=== PATIENT | female | born 2000 | race Caucasian/White ===

== ENCOUNTER → 2020-01-10 | Outpatient (REF) | payer OTHER ==
[~2020-01-10] MED LIST: CVS5000S2 PO; IRON325T2 PO; MELA10TA2 PO; NAPR-837 PO; TESS100C PO; TRI-TAB PO; ZOLO100T PO
== END ==
LOC: M SFHCLERA 19:24
PROVIDERS: ATTEND Physician Assistant
DX: J02.9 Acute pharyngitis, unspecified (principal)

== ENCOUNTER 2020-01-11 17:49 | Emergency (ER) | payer OTHER ==
[~2020-01-11] VITALS: Ht 157.5 cm; Wt 58.1 kg
--- NOTE | 2020-01-11 19:13 | REP ---
Clinical: Cough . Comparison: None . Technique: PA and lateral. Findings: The mediastinum and cardiac silhouette are normal. The lung edmondson are clear and without acute consolidation, effusion, or pneumothorax. The skeletal structures are intact and normal. Impression: 1. No acute cardiopulmonary process. Electronically Signed by Varinder Lake MD 01/11/2020 07:05 P
[2020-01-11] MEDS ORDERED: CVS5000S2 PO (19:31)
[2020-01-11] MEDS ORDERED: ZOLO100T PO (19:31)
[2020-01-11] MEDS ORDERED: IRON325T2 PO (19:31)
[2020-01-11] MEDS ORDERED: TRI-TAB PO (19:31)
[2020-01-11] MEDS ORDERED: MELA10TA2 PO (19:31)
[2020-01-11 20:09] VITALS: BP 114/73
[2020-01-11] MEDS ORDERED: NAPR-837 PO (20:20)
[2020-01-11] MEDS ORDERED: TESS100C PO (20:20)
[2020-01-11] MEDS ORDERED: BENZONATATE 100 MG CAP PO ONE (20:30)
[2020-01-11] MEDS ORDERED: NAPROXEN 250 MG TAB PO ONE (20:30)
== END 2020-01-11 20:35 | disposition home or self-care (01) ==
LOC: M ED 17:49
DX: R09.1 Pleurisy (principal); B34.9 Viral infection, unspecified; F17.290 Nicotine dependence, other tobacco product, uncomplicated; F41.9 Anxiety disorder, unspecified; F32.9 Major depressive disorder, single episode, unspecified; Z79.899 Other long term (current) drug therapy

== ENCOUNTER 2020-08-22 13:59 | Emergency (ER) | payer OTHER ==
[~2020-08-22] VITALS: Ht 160 cm; Wt 65.3 kg
[2020-08-22] MEDS ORDERED: LIDOCAINE 2% MDV 20ML VIAL SC ONE (15:45)
[2020-08-22 16:26] VITALS: BP 120/76
== END 2020-08-22 16:27 | disposition home or self-care (01) ==
LOC: M ED 13:59
DX: S60.454A Superficial foreign body of right ring finger, initial encounter (principal); Y92.9 Unspecified place or not applicable; Y93.9 Activity, unspecified; Y99.9 Unspecified external cause status

== ENCOUNTER 2020-10-14 13:41 | Emergency (ER) | payer OTHER ==
[~2020-10-14] VITALS: Ht 160 cm; Wt 66.1 kg
[2020-10-14] MEDS ORDERED: vitamin d PO (13:56)
[2020-10-14] MEDS ORDERED: NAPR-832 PO (13:56)
[2020-10-14] MEDS ORDERED: ONDA-83 PO (13:56)
[2020-10-14] MEDS ORDERED: RIZA10TA58 PO (13:56)
[2020-10-14] MEDS ORDERED: NS 1,000 ML IV SCH (14:34)
[2020-10-14] MEDS ORDERED: ASPIRIN 81 MG CHEW TABLET PO ONE (14:45)
[2020-10-14 15:16] LABS: BASO % 0.4 % (0.0-1.0); EOS # 0.3 10^3/uL (0.0-0.5); EOS % 3.7 % (0.0-3.0); HEMATOCRIT 37.9 % (36.0-47.0); HEMOGLOBIN 12.4 g/dl (12.0-15.5); LYMPH # 2.2 10^3/uL (1.5-5.0); LYMPH % 33.2 % (24.0-44.0); MEAN CORPUSCULAR HEMOGLOBIN 28.8 pg (27.0-33.0); MEAN CORPUSCULAR HGB CONC 32.7 g/dl (32.0-36.5); MEAN CORPUSCULAR VOLUME 87.9 fl (80.0-96.0); MONO # 0.5 10^3/uL (0.0-0.8); MONO % 7.6 % (0.0-5.0); NEUTROPHILS # 3.7 10^3/uL (1.5-8.5); NEUTROPHILS % 54.8 % (36.0-66.0); PLATELET COUNT, AUTOMATED 203 10^3/uL (150-450); RED BLOOD COUNT 4.31 10^6/uL (4.00-5.40); WHITE BLOOD COUNT 6.7 10^3/uL (4.0-10.0)
[2020-10-14 15:28] LABS: INR 0.88; PROTHROMBIN TIME 12.1 SECONDS (12.5-14.3)
[2020-10-14 15:48] LABS: HCG, SERUM QUALITATIVE NEGATIVE (NEGATIVE)
[2020-10-14 15:59] LABS: ALBUMIN 3.7 GM/DL (3.2-5.2); ALT/SGPT 35 U/L (12-78); BILIRUBIN,DIRECT 0.1 MG/DL (0.0-0.2); BILIRUBIN,TOTAL 0.4 MG/DL (0.2-1.0); BLOOD UREA NITROGEN 10 MG/DL (7-18); CARBON DIOXIDE LEVEL 28 MEQ/L (21-32); CHLORIDE LEVEL 104 MEQ/L (98-107); CK-MB VALUE MASS < 1.0 NG/ML (<3.6); CPK CREATINE PHOSPHOKINASE 88 U/L (26-192); CREATININE FOR GFR 0.65 MG/DL (0.55-1.30); FREE T4 0.85 NG/DL (0.78-1.33); GLUCOSE, FASTING 85 MG/DL (70-100); MB/CK RELATIVE INDEX 1.14 (< OR =4); NT-PRO BNP 44 PG/ML (<125); POTASSIUM SERUM 3.7 MEQ/L (3.5-5.1); SODIUM LEVEL 138 MEQ/L (136-145); THYROID STIMULATING HORMONE 0.955 uIU/ML (0.463-3.98); TOTAL PROTEIN 7.3 GM/DL (6.4-8.2); TROPONIN I < 0.02 NG/ML (< 0.10)
--- NOTE | 2020-10-14 16:18 | REP ---
INDICATION: CHEST PAIN. COMPARISON: 01/11/2020 TECHNIQUE: AP portable upright FINDINGS: Lung edmondson are well inflated. There is no infiltrate, effusion atelectasis or mass. The heart, mediastinal hilar contours are normal. There is no evidence of pneumothorax or pneumomediastinum. The aorta and airway were intact. Bones were unremarkable. No free air under the diaphragm. IMPRESSION: 1. There is no acute cardiopulmonary change. Stable chest. <Electronically signed by Gurdeep Sparks > 10/14/20 [id number]
[2020-10-14 16:49] VITALS: BP 123/68
--- NOTE | 2020-10-14 19:28 | ECGEPIP ---
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
== END 2020-10-14 16:53 | disposition home or self-care (01) ==
LOC: M ED 13:41
DX: R00.2 Palpitations (principal); F41.9 Anxiety disorder, unspecified; Z79.899 Other long term (current) drug therapy

== ENCOUNTER 2020-12-27 23:12 | Emergency (ER) | payer OTHER ==
[~2020-12-27] VITALS: Ht 160 cm; Wt 66.5 kg
[~2020-12-27 23:12] MED LIST changes: +NAPR-832 PO; +ONDA-83 PO; +RIZA10TA58 PO; +vitamin d PO
--- OUTSIDE RECORDS SUMMARY | 2020-12-27 23:19 | CCD | Continuity of Care Document ---
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 Manager General Sales Name Role Phone Ed Martinez MD AUTM Unavailable [facility] AUTM [employer]M [phone] Problems Description No Information Available Social History Type Date Description Comments Sex Unknown Tobacco Use Start: Unknown Patient has never smoked Tobacco Use Start: Unknown Patient Currently Vapes Smoking Status Reviewed: 12/16/20 Patient Currently Vapes Allergies, Adverse Reactions, Alerts Description No Known Drug Allergies Medications Active Medications SIG Qnty Indications Ordering Provide r Date Control Pill Unknown Vitamin D Unknown Sertraline HCL Unknown Maxalt 10mg Tablets qd Unknown Ibuprofen 600mg Tablets 1 tab by mouth every 8 hours as needed Unknown History Medications No Active Medications Unknown - 09/20/2020 Immunizations Description No Information Available Vital Signs Date Vital Result Comment 12/16/2020 12:31pm BP Systolic 118 mmHg BP Diastolic 72 mmHg Heart Rate 88 /min Respiratory Rate 14 /min O2 % BldC Oximetry 98 % Body Temperature 98.7 F Weight 143.00 lb Pain Level 4 09/28/2020 12:34pm BP Systolic 106 mmHg BP Diastolic 64 mmHg Heart Rate 86 /min Respiratory Rate 16 /min O2 % BldC Oximetry 98 % Body Temperature 98.6 F Weight 130.00 lb Height 63 inches 5'3" BMI (Body Mass Index) 23.0 kg/m2 Pain Level 9 Results Description No Information Available Procedures Date Code Description Status 09/28/2020 04253 Therapeutic, Prophylactic Or Mamie gnostic Injection Subq/Im Completed Medical Devices Description No Information Available Encounters Type Date Location Provider Dx Diagnosis Office Visit 12/16/2020 1:00p Main Office SANTI Zafar J06.9 Acute upper respiratory infection, unspecified Z20.828 Contact w and exposure to ot h viral communicable diseases Office Visit 09/28/2020 1:15p Main Office SANTI Zafar R51.9 Headache, unspecified M26.603 Bilateral temporomandibular joint disorder, unspecified F41.9 Anxiety disorder, unspecifie d Office Visit 09/20/2020 5:00p Main Office SANTI Musa J0 1.00 Acute maxillary sinusitis, unspecified Z20.828 Contact w and exposure to ot h viral communicable diseases Assessments Date Code Description Provider 12/16/2020 J06.9 Acute upper respiratory infectio n, unspecified SANTI Zafar 12/16/2020 Z20.828 Contact with and ([place] spected) exposure to other viral communicable diseases SANTI Zafar 09/28/2020 R51.9 Headache, unspecified SANTI Zafar 09/28/2020 M26.603 Bilateral temporomandibular join t disorder, unspecified SANTI Zafar 09/28/2020 F41.9 Anxiety disorder, unspecified SANTI Vivas 09/20/2020 J01.00 Acute maxillary sinusitis, unspe cified SANTI Musa 09/20/2020 Z20.828 Contact with and ([place] spected) exposure to other viral communicable diseases SANTI Musa Plan of Treatment No Information Available Functional Status Description No Information Available Mental Status Description No Information Available Referrals Refer to Dr Reason for Referral Status Appt Date [facility] Created [address] [place] [address] Niesha Barton PA Created [address] [place] [address] [phone] Niesha Barton PA Created [address] [place] [address] [phone]
--- OUTSIDE RECORDS SUMMARY | 2020-12-27 23:19 | CCD | Continuity of Care Document ---
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
--- OUTSIDE RECORDS SUMMARY | 2020-12-27 23:19 | CCD ---
Author Author [facility] Organization [facility] Address Unknown Phone Unavailable Care Team Providers Care Oil Dispatcher Name Role Phone Blayne Estes MD Unavailable Unavailable Blayne Estes MD Unavailable Unavailable Blayne Estes MD Unavailable Unavailable Blayne Estes MD Unavailable Unavailable Blayne Estes MD Unavailable Unavailable Blayne Estes MD Unavailable Unavailable Blayne Estes MD Unavailable Unavailable Blayne Estes MD Unavailable Unavailable Blayne Estes MD Unavailable Unavailable Blayne Estes MD Unavailable Unavailable Blayne Estes MD Unavailable Unavailable Blayne Estes MD Unavailable Unavailable Blayne Estes MD Unavailable Unavailable Blayne Estes MD Unavailable Unavailable Blayne Estes MD Unavailable Unavailable Blayne Estes MD Unavailable Unavailable Blayne Estes MD Unavailable Unavailable Blayne Estes MD Unavailable Unavailable Blayne Estes MD Unavailable Unavailable Blayne Estes MD Unavailable Unavailable Blayne Estes MD Unavailable Unavailable Blayne Estes MD Unavailable Unavailable Blayne Estes MD Unavailable Unavailable Blayne Estes MD Unavailable Unavailable Blayne Estes MD Unavailable Unavailable Blayne Estes MD Unavailable Unavailable Blayne Estes MD Unavailable Unavailable Blayne Estes MD Unavailable Unavailable Blayne Estes MD Unavailable Unavailable Slezka Vojtech MD Unavailable Unavailable Slezka Vojtech MD Unavailable Unavailable Slezka Vojtech MD Unavailable Unavailable Slezka Vojtech MD Unavailable Unavailable Slezka Vojtech MD Unavailable Unavailable Slezka Vojtech MD Unavailable Unavailable Slezka Vojtech MD Unavailable Unavailable Slezka Vojtech MD Unavailable Unavailable Slezka Vojtech MD Unavailable Unavailable Slezka Vojtech MD Unavailable Unavailable Slezka Vojtech MD Unavailable Unavailable Slezka Vojtech MD Unavailable Unavailable Slezka, Vojtech MD Unavailable Unavailable Slezka Vojtech MD Unavailable Unavailable Slezka Vojtech MD Unavailable Unavailable Slezka Vojtech MD Unavailable Unavailable Slezka Vojtech MD Unavailable Unavailable Slezka Vojtech MD Unavailable Unavailable Slezka Vojtech MD Unavailable Unavailable Slezka Vojtech MD Unavailable Unavailable Slezka Vojtech MD Unavailable Unavailable Slezka Vojtech MD Unavailable Unavailable Slezka Vojtech MD Unavailable Unavailable Slezka Vojtech MD Unavailable Unavailable Slezka, Vojtech MD Unavailable Unavailable Slezka Vojtech MD Unavailable Unavailable Slezka Vojtech MD Unavailable Unavailable Slezka Vojtech MD Unavailable Unavailable Slezka Vojtech MD Unavailable Unavailable Campanaro, Mare Niesha PA Unavailable Unavailable Campanaro, Mare Niesha PA Unavailable Unavailable Campanaro, Mare Niesha PA Unavailable Unavailable Campanaro, Mare Niesha PA Unavailable Unavailable Campanaro, Mare Niesha PA Unavailable Unavailable Campanaro, Mare Niesha PA Unavailable Unavailable Campanaro, Mare Niesha PA Unavailable Unavailable Campanaro, Mare Niesha PA Unavailable Unavailable Campanaro, Mare Niesha PA Unavailable Unavailable Campanaro, Mare Niesha PA Unavailable Unavailable Campanaro, Mare Niesha PA Unavailable Unavailable Campanaro, Mare Niesha PA Unavailable Unavailable Campanaro, Mare Niesha PA Unavailable Unavailable Campanaro, Mare Niesha PA Unavailable Unavailable Campanaro, Mare Niesha PA Unavailable Unavailable Campanaro, Mare Niesha PA Unavailable Unavailable Campanaro, Mare Niesha PA Unavailable Unavailable Campanaro, Mare Niesha PA Unavailable Unavailable LENA, L ALEX MD Unavailable Unavailable LENA, L ALEX MD Unavailable Unavailable LENA, L ALEX MD Unavailable Unavailable LENA, L ALEX MD Unavailable Unavailable LENA, L ALEX MD Unavailable Unavailable LENA, L ALEX MD Unavailable Unavailable LENA, L ALEX MD Unavailable Unavailable LENA, L ALEX MD Unavailable Unavailable LENA, L ALEX MD Unavailable Unavailable LENA, L ALEX MD Unavailable Unavailable LENA, L ALEX MD Unavailable Unavailable LENA, L ALEX MD Unavailable Unavailable LENA, L ALEX MD Unavailable Unavailable LENA, L ALEX MD Unavailable Unavailable LENA, L ALEX MD Unavailable Unavailable LENA, L ALEX MD Unavailable Unavailable LENA, L ALEX MD Unavailable Unavailable LENA, L ALEX MD Unavailable Unavailable LENA, L ALEX MD Unavailable Unavailable LENA, L ALEX MD Unavailable Unavailable LENA, L ALEX MD Unavailable Unavailable LENA, L ALEX MD Unavailable Unavailable LENA, L ALEX MD Unavailable Unavailable Washington, Dary Justine PA Unavailable Unavailable Washington, Dary Justine PA Unavailable Unavailable Washington, Dary Justine PA Unavailable Unavailable Washington, Dary Justine PA Unavailable Unavailable Washington, Dary Justine PA Unavailable Unavailable Washington, Dary Justine PA Unavailable Unavailable Washington, Dary Justine PA Unavailable Unavailable Washington, Dary Justine PA Unavailable Unavailable Washington, Dary Justine PA Unavailable Unavailable Washington, Dary Justine PA Unavailable Unavailable VENEALINESKal MD Unavailable Unavailable VENERUSKal MD Unavailable Unavailable VENEALINESKal MD Unavailable Unavailable VENERUSKal MD Unavailable Unavailable VENERUSKal MD Unavailable Unavailable VENERUSKal MD Unavailable Unavailable VENERUSKal MD Unavailable Unavailable VENEALINESKal MD Unavailable Unavailable VENEALINESKal MD Unavailable Unavailable NO, PCP Unavailable Unavailable Re-disclosure Warning The records that you are about to access may contain information from federally-assisted alcohol or drug abuse programs. If such information is present, then the following federally mandated warning applies: This information has been disclosed to you from records protected by federal confidentiality rules (42 CFR part 2). The federal rules prohibit you from making any further disclosure of this information unless further disclosure is expressly permitted by the written consent of the person to whom it pertains or as otherwise permitted by 42 CFR part 2. A general authorization for the release of medical or other information is NOT sufficient for this purpose. The Federal rules restrict any use of the information to criminally investigate or prosecute any alcohol or drug abuse patient.The records that you are about to access may contain highly sensitive health information, the redisclosure of which is protected by Article 27-F of the [facility] Public Health law. If you continue you may have access to information: Regarding HIV / AIDS; Provided by facilities licensed or operated by the [facility] Office of Mental Health; or Provided by the [facility] Office for People With Developmental Disabilities. If such information is present, then the following [facility] mandated warning applies: This information has been disclosed to you from confidential records which are protected by state law. State law prohibits you from making any further disclosure of this information without the specific written consent of the person to whom it pertains, or as otherwise permitted by law. Any unauthorized further disclosure in violation of state law may result in a fine or correction sentence or both. A general authorization for the release of medical or other information is NOT sufficient authorization for further disc losure. Encounters Encounter Providers Location Date Indications Data Source(s ) Outpatient Attender: Justine Vasques Prim [facility] 12/16/2020 12:00:00 PM EST [facility] ([facility] Outpatient Attender: Blayne Estes MD SJP.LILLIANA-SJP.LILLIANA 10/03 12:00:00 AM EST - 10/26/2020 10:18:51 AM EST [facility] Outpatient Attender: Justine Vasques Prim diamond 09/28/2020 01:15:00 PM EDT [facility] ([facility]) Outpatient Attender: Niesha Vasques Prim [facility] 09/20/2020 05:00:00 PM EDT [facility] ([facility]) Emergency Attender: ELENA LEWIS MDConsultant: PCP NO 08/12/2020 01:46:00 PM EDT - 08/12/2020 05:00:00 PM EDT [facility] Patient discharged. Emergency Attender: ALEX PAREDES MDConsultant: PCP NO 08/10/2020 12:44:00 PM EDT - 08/10/2020 02:24:00 PM EDT [facility] Patient discharged. Outpatient 02/02/2020 05:42:00 AM EST [facility] [address] [place] [address] 01/10/2020 12:00:00 AM EST eCW1 ([facility]) Medications Medication Brand Name Start Date Product Form Dose Route Admi nistrative Instructions Pharmacy Instructions Status Indications Reaction Description Data Source(s) Sertraline 100 MG Oral Tablet sertraline (ZOLOFT) 100 MG tablet sertraline (ZOLOFT) 100 MG tablet 10/06/2020 12:00:00 AM EST active [facility] rizatriptan 10 MG Disintegrating Oral Ta blet rizatriptan (MAXALT-MACHINE SCALLOP CUTTER) 10 MG disintegrating tablet rizatriptan (MAXALT-MACHINE SCALLOP CUTTER) 10 MG disintegrating tablet 10/04/2020 12:00:00 AM EST active [facility] Ondansetron 4 MG Oral Tablet ondansetron (ZOFRAN) 4 MG tablet ondansetron (ZOFRAN) 4 MG tablet 10/04/2020 12:00:00 AM EST ac tive [facility] No Active Medications 09/20/2020 12:00:00 AM EDT completed [facility] ([facility]) Cholecalciferol 66967 UNT Oral Capsule C holecalciferol (VITAMIN D3) 1.25 MG (85260 UT) CAPS Cholecalciferol (VITAMIN D3) 1.25 MG (80681 UT) CAPS 1 12:00:00 AM EDT active [facility] 200 ACTUAT Albuterol 0.09 MG/ACTUAT Mete red Dose Inhaler [ProAir] ProAir HFA 108 (90 Base) MCG/ACT ProAir HFA 108 (90 Base) MCG/ACT 01/10/2020 12:00:00 AM EST active 2 puffs as neede d eCW1 ([facility]) Insurance Providers Payer name Policy type / Coverage type Policy ID Covered democrat ID Covered democrat's relationship to cassidy Policy Cassidy Plan Information [facility] [id number] [facility] [id number] [facility] O [id number] S [id number] Elle [id number] 501 [facility] [id number] [facility] - O/P [id number] Problems, Conditions, and Diagnoses Code Display Name Description Problem Type Effective Dates Data Source(s) R06.00 Dyspnea on exertion Dyspnea on exertion [id number] 1 12/26/2019 12:00:00 AM [facility] R00.2 Palpitations Palpitations [id number] 10/26/2020 12:00:00 A [facility] R07.89 Other chest pain Other chest pain [id number] 10/26/2020 12 :00:00 AM [facility] R06.00 Dyspnea, unspecified Dyspnea, unspecified Diagnosis 10/26/2020 09:27:32 AM [facility] R00.2 Palpitations Palpitations Diagnosis 10/26/2020 09:27:32 A [facility] R07.89 Other chest pain Other chest pain Diagnosis 10/26/2020 09 :27:32 AM [facility] [id number] Unspecified place in unspeci fied non-institutional (private) residence as the place of occurrence of the external cause Unspecified place in unspecified non-institutional (private) residence as the place of occurrence of the external cause Diagnosis 08/12[facility]2020 [id number] Other foreign body or object entering th rough skin, initial encounter Other foreign body or object entering through skin, initial encounter Diagnosis 08/12/2020 01:46:[facility] [id number] Puncture wound with foreign body of right ring finger without damage to nail, initial encounter Puncture wound with foreign body of righ t ring finger without damage to nail, initial encounter Diagnosis 08/12/2020 01:46:0 0 PM EDT [facility] Y9289 Other specified places as the place of o ccurrence of the external cause Other specified places as the place of occurrence of the external cause Diagnosis 08/10/2020 12:44:00 PM EDT [facility] [id number] Striking against or struck by other obje cts, initial encounter Striking against or struck by other objects, initial encounter Diagnosis 08/10/2020 12:44:00 PM EDT [facility] [id number] Cellulitis of right finger Cellulitis of right finger Diagnosis 08/10/2020 12:44:00 PM EDT [facility] [id number] Abrasion of right ring finger, initial e ncounter Abrasion of right ring finger, initial encounter Diagnosis 08/10/2020 12:44:00 PM EDT [facility] [id number] Unspecified superficial injury of right ring finger, initial encounter Unspecified superficial injury of right ring finger, initial encounter Diagnosis 08/10/2020 12:44:00 PM EDT [facility] Surgeries/Procedures Procedure Description Date Indications Data Source(s) POCT AMB EKG POCT AMB EKG Routine 10/26/2020 9:46 AM EST Other chest pain Palpitations 10/26/2020 02:46:00 PM EST PalpitationsOther roxy st pain [facility] Palpitations Other chest pain Therapeutic, Prophylactic Or Diagnostic Injection Subq/Im 09/28/2020 12:00:00 AM EDT [facility] ([facility]) STREP A ASSAY W/OPTIC 01/10/2020 12:00:00 AM EST eCW1 ([facility]) Influenza A+B 01/10/2020 12:00:00 AM EST eCW1 ([facility]) Results ID Date Data Source [id number] 12/16/2020 12:00:00 AM EST [facility] Name Value Range Interpretation Code Description Data Queta rce(s) Supporting Document(s) SARS coronavirus 2 Ag Negative [facility] This lab was ordered by [facility] and reported by [facility]. ID Date Data Source [id number] 09/20/2020 12:00:00 AM EDT [facility] Name Value Range Interpretation Code Description Data Queta rce(s) Supporting Document(s) SARS coronavirus 2 Ag [facility] This lab was ordered by [facility] and reported by [facility]. ID Date Data Source [id number] 08/15/2020 08:50:00 AM EDT [facility] [address] [place] [address] PHONE: [phone] FAX: [phone] Name .................. : MAMIE Ward Acct Number.................. : [id number] ROOM. ................. : [facility] MR Number ................... : [id number] Stay type ............. : E/R Discharge Date......... ... : 08/12/20 Admit Date ......... : 08/12/20 Admit Phys .................... : DEBBIE GODINEZ Date of ....... : 2000 Family Phys ................... : NO PCP Phone .................. : [phone] Age ................................ : 20 Film# .................. .:[id number] Sex ................................. : F Unsigned transcriptions are preliminary reports and do not represent a medical or legal document US EXT-NON VASCULAR RT COMPL [id number] COMPLETE:08/12/20 17:00 BAW [id number] Reason(s): ? FB in R ring finger ULTRASOUND OF THE SOFT TISSUES OF THE RIGHT RING FINGER: INDICATION: Foreign body. FINDINGS: There is a subtle area of linear increased echogenicity suggestive of a possible wood splinter measuring 6 x 1 mm at the area of interest. IMPRESSION: Suspected foreign body at the area of interest measuring 6 x 1 mm. Examination dictated by SANTI Marino. Examination was reviewed with Marly Pacheco MD, radiologist at the time of this dictation. Electronically Reviewed and Signed By MARLY PACHECO MD , 08/15/20 08:50, [facility] Transcribe Initials: DZ , Transcribe Date: 08/13/20 02:18, Dictation Date: Copy for: LIDIA ZAMBRANO via fax Copy for: EMERGENCY DEPT via modem Copy for: 710 MED REC DISCHARGED Page 1 of 1 Name Value Range Interpretation Code Description Data Queta rce(s) Supporting Document(s) ID Date Data Source [id number] 08/12/2020 01:46:00 PM EDT [facility] 1 OrderSheet [facility] Emergency Department [address] [place] [address] Phone #: ext- [phone] 08/12/2020 13:43 Patient: JOSEPH HATCH Sex: F : 2000 Age: 20yWEIGHT:58.9 kg (S) HEIGHT:63 inches (S) BMI:23.0ALLERGIES: No Known Drug AllergyCHIEF COMPLAINT: Rt, ring fingerDIAGNOSIS: Laceration - Injury, Soft tissue foreign bodyLAB ORDERSOrder Description Priority Entered Acknowledged InitialedDIAGNOSTIC STUDY ORDERSOrder Description Priority Entered Acknowledged InitialedUS Ext STAT 14:17 08/12/2020 14:22 Sorbero,Nonvascular Right Vignesh Patton R.N.(Oxygen?(No)) P.A.-C; Reason for Study: ? FB in R ring fingerMEDICATION/IV/DRIP/FLUID ORDERSOrder Description Priority Entered Acknowledged InitialedBacitracin Zinc 16:17 08/12/2020 16:42 Ravinder,Topical 1 Vignesh Patton R.N.application P.A.-C;GENERAL ORDERSOrder Description Priority Entered Acknowledged InitialedDress Wounds 16:17 08/12/2020 16:42 Vignesh Castellon R.N.AKleber-Maria Teresa;[Electronically signed by Abdi Castellon R.N. (17:18 08/12/2020)][Electronically signed by Vignesh Perales P.A.-C (21:56 08/12/2020)][Electronically locked by Abdi Castellon R.N. (:18 08/12/2020)] Name Value Range Interpretation Code Description Data Queta rce(s) Supporting Document(s) ID Date Data Source [id number] 08/12/2020 01:46:00 PM EDT [facility] 1 Medication Reconciliation Report [facility] Emergency Department [address] [place] [address] Phone #: ext- [phone] 08/12/2020 13:43 Patient: JOSEPH HATCH Sex: F : 2000 Age: 20yWeight: 58.9 kgHeight/Length: 63 in.BMI: 23.0ALLERGIES: No Known Drug AllergyThe patient's Home Medications are listed below:THE FOLLOWING MEDICATIONS NEED TO BE RECONCILED: Control Pills 1 pill, daily Keflex Oral 500 mg, q8h Sertraline HCl Oral 100 mg, dailyThe source(s) of the original Home Medication information:Not obtained.The following Medications were given to the patient in the Emergency Department:Bacitracin Zinc [Topical] Topical 1 application, administered: 08/12/2020 4:37:00 PMThe following Medications were prescribed to the patient:Hollywood 5 mg-325 mg tablet Take 1 tablet three times a day for 2 days -- Dispense 6 tablet. Refills: 0.Substitution permitted.Pharmacy - [facility] [id number] ; [place] [address]. .Hollywood 5 mg-325 mg tablet Take 1 tablet three times a day for 2 days -- Dispense 6 tablet. Refills: 0.Substitution permitted. Note to Pharmacy - laceration w/ removal of FB.Pharmacy - [facility] [id number] [address] ; [place] [address]. . -- Vignesh Perales P.A.-C Name Value Range Interpretation Code Description Data Queta rce(s) Supporting Document(s) ID Date Data Source [id number] 08/12/2020 01:46:00 PM EDT [facility] 1 Medication Administration Record [facility] Emergency Department [address] [place] [address] Phone #: [phone]- [phone] 08/12/2020 13:43 Patient: JOSEPH HATCH Sex: F : 2000 Age: 20yWeight: 58.9 kgHeight/Length: 63 inBMI: 23ALLERGIES: No Known Drug Allergy Date/Time Medication Administered Medication OrderedGiven BACITRACIN ZINC [TOPICAL] Bacitracin Zinc Topical 116:37 08/12/2020 Dose: 1 application Ointment Topical Abdi Cuba R.N. Name Value Range Interpretation Code Description Data Queta rce(s) Supporting Document(s) ID Date Data Source [id number] 08/12/2020 01:46:00 PM EDT [facility] 1 General Instructions [facility] Emergency Department [address] [place] [address] Phone #: ext- [phone] 08/12/2020 13:43 Patient: JOSEPH HATCH Sex: F : 2000 Age: 20ySingle superficial laceration to the right ring finger. Foreign body present. No right fingernail injury.Removal of superficial wooden soft tissue foreign body to the right ring finger. Puncture wound andlaceration present. No right fingernail injury.INSTRUCTIONSProtect wound and keep wound area clean. Change dressing daily. Keep wounds dry. Apply bacitracintwice daily. Sutures/rubio should be removed in seven days. Limit use of your right hand for one weeks.Do not work with right hand for one weeks. Do not work for one week.No dietary restrictions.(Recommend to utilize OTC Motrin and Tylenol to control inflammation and pain management.Recommend to follow the instructions on the bottle and not to exceed.Recommend to utilize OTC antibiotic ointment to help control possible skin infection and help promotewound healing and care.).Warnings: COMPLICATIONS: Complications from this condition are possible.INFECTION: Watch for signs of infection (increasing heat and redness, pus-like drainage, swelling, orincreased pain). Return or see your doctor if these signs occur.Prescription monitor program consulted by me. Prescription does not exceed state maximum supply ofmedicationsPrescription Medications:Hollywood 5 mg-325 mg tablet Take 1 tablet three times a day for 2 days -- Dispense 6 tablet. Refills: 0.Substitution permitted.Pharmacy - [facility] [id number] ; [place] [address]. .Hollywood 5 mg-325 mg tablet Take 1 tablet three times a day for 2 days -- Dispense 6 tablet. Refills: 0.Substitution permitted. Note to Pharmacy - laceration w/ removal of FB.Pharmacy - [facility] [address] [address] ; [place] [address]. .Follow-up:Return to the emergency department as needed. Follow up with your healthcare provider in about twodays. 2 General Instructions [facility] Emergency Department [address] [place] [address] Phone #: ext- [phone] 08/12/2020 13:43 Patient: JOSEPH HATCH Sex: F : 2000 Age: 20yUnderstanding of the discharge instructions verbalized by patient. ADDITIONAL INFORMATIONLaceration: All ClosuresA laceration is a cut through the skin. This will usually require stitches (sutures) or rubio if it is deep.Minor cuts may be treated with a surgical tape closure or skin glue.Home care Your healthcare provider may prescribe an antibiotic. This is to help prevent infection. Follow all instructions for taking this medicine. Take the medicine every day until it is gone or you are told to stop. You should not have any left over. The healthcare provider may prescribe medicines for pain. If no pain medicines were prescribed, you can use [id number] pain medicines. Follow instructions for taking any pain medicines. (Note: If you have chronic liver or kidney disease, or ever had a stomach ulcer or gastrointestinal bleeding, talk with your doctor before using these medicines.) Follow the healthcare provider's instructions on how to care for the cut. Keep the wound clean and dry. Do not get the wound wet until you are told it is OK to do so. If 3 General Instructions [facility] Emergency Department [address] [place] [address] Phone #: ext- [phone] 08/12/2020 13:43 [id number] Sex[facility] : 2000 Age: 20y the area gets wet, gently pat it dry with a clean cloth. Replace the wet bandage with a dry one. If a bandage was applied and it becomes wet or dirty, replace it. Otherwise, leave it in place for the first 24 hours. Caring for sutures or rubio: Once you no longer need to keep them dry, clean the wound daily. First, remove the bandage. Then wash the area gently with soap and warm water, or as directed by the healthcare provider. Use a wet cotton swab to loosen and remove any blood or crust that forms. After cleaning, apply a thin layer of antibiotic ointment if advised. Then put on a new bandage unless you are told not to. Caring for skin glue: Don't put apply liquid, ointment, or cream on the wound while the glue is in place. Avoid activities that cause heavy sweating. Protect the wound from sunlight. Do not scratch, rub, or pick at the adhesive film. Do not place tape directly over the film. The glue should peel off within 5 to 10 days. Caring for surgical tape: Keep the area dry. If it gets wet, blot it dry with a clean towel. Surgical tape usually falls off within 7 to 10 days. If it has not fallen off after 10 days, you can take it off yourself. Put mineral oil or petroleum jelly on a cotton ball and gently rub the tape until it is removed. Once you can get the wound wet, you may shower as usual but do not soak the wound in water (no tub baths or swimming) Even with proper treatment, a wound infection may sometimes occur. Check the wound daily for signs of infection listed below.Scalp woundsDuring the first 2 days, you may carefully rinse your hair in the shower to remove blood, glass or dirtparticles. After two days, you may shower and shampoo your hair normally. Do not soak your scalp inthe tub or go swimming until the stitches or rubio have been removed. Talk with your healthcareprovider before applying any antibiotic ointment to the wound.Mouth woundsEat soft foods to reduce pain. If the cut is inside of your mouth, clean by rinsing after each meal andat bedtime with a mixture of equal parts water and hydrogen peroxide (do not swallow!). Or, you canuse a cotton swab to directly apply hydrogen peroxide onto the cut. You may also be prescribed achlorhexidine solution to rise with. Mouth wounds can be painful when eating. You may use lgaaji-bvc-zmkfamm local numbing solution for pain relief. If this is not available, you may use anynumbing solution intended for teething babies. You may apply this directly to the sores with acotton-tip swab or with your finger. 4 General Instructions [facility] Emergency Department [address] [place] [address] Phone #: ext- [phone] 08/12/2020 13:43 Patient: JOSEPH HATCH Sex: F : 2000 Age: 20yFollow-up careFollow up with your healthcare provider as advised. Ask your healthcare provider how long suturesshould be left in place. Be sure to return for suture removal as directed. If dissolving stitches wereused in the mouth, these should fall out or dissolve without the need for removal. If tape closureswere used, remove them yourself when your provider recommends if they have not fallen off on theirown. If skin glue was used, the film will wear off by itself. Generally, you should keep healing woundsout of direct sunlight for the first couple of months to try to lessen scarring.When to seek medical adviceCall your healthcare provider right away if any of these occur: Signs of infection, including increasing pain in the wound, increasing wound redness or swelling, or pus or bad odor coming from the wound Fever of 100.4F (38.C) or higher, or as directed by your healthcare provider Stitches or rubio come apart or fall out or surgical tape falls off before 7 days Wound edges reopen Wound changes colors Numbness around the wound after any numbing medicine should have worn off Decreased movement around the injured areaCall 911Call 911 if you can't control the wound bleeding with direct pressure. [id number] [employer]. [address] [place] [address], [place] [address]. All rights reserved. This information is not intended as asubstitute for professional medical care. Always follow you r healthcare professional's instructions.Foreign Object Under the Skin (Removed)An object has been removed from under your skin. Although care was taken to remove all of it, thereis always a chance that a small piece may have been left behind.Most skin wounds heal without problems. But there can be an increased risk of infection if anythingstays under the skin. Sometimes the pieces work their way out on their own, and sometimes they cancause an infection. Very small pieces that stay under the skin usually don't cause a problem or needfurther treatment.Home care 5 General Instructions [facility] Emergency Department [address] [place] [address] Phone #: ext- [phone] 08/12/2020 13:43 Patient: JOSEPH HATCH Sex: F : 2000 Age: 20yWound care Keep the wound clean and dry. If there is a dressing or bandage, change it when it gets wet or dirty. Otherwise, leave it on for the first 24 hours, then change it once a day or as often as you were instructed. If stitches or rubio were used, clean the wound every day: o After taking off the dressing, wash the area gently with soap and water. o Apply a thin layer of antibiotic ointment to the cut. This will keep the wound clean and make it easier to remove the stitches. If it is oozing a lot, you can put a nonstick dressing over it. Then reapply the bandage or dressing as you were instructed. o You can get it wet, just like when you clean it. This means you can shower as usual for the first 24 hours, but do not soak the area in water (no baths or swimming) until the stitches or rubio are taken out. If surgical tape or strips were used, keep the area clean and dry. If it becomes wet, blot it dry with a towel.Medicine You can take egod-lin-gogglzi medicine for pain, unless you were given a different pain medicine to use. If you have chronic liver or kidney disease or ever had a stomach ulcer, or gastrointestinal bleeding or are taking blood thinner medicines, talk with your healthcare provider before using these medicines. If you were given antibiotics, take them until they are used up. It is important to finish the antibiotics even if the wound looks better to make sure the infection clears.Follow-up careFollow up your healthcare provider, or as advised. Keep in mind the following: Watch for any signs of infection, such as increasing pain, redness, swelling, or pus drainage. If this happens, don't wait for your scheduled visit, rather see your healthcare provider sooner. Stitches or rubio are usually taken out within 5 to 14 days. This varies depending on what part of your body they are on, and the type of wound. The healthcare provider will tell you how long they should be left in. If surgical tape or strips were used, they are usually left on for 7 to 10 days. You can remove them after that unless you were told otherwise. If you try to remove them, and it is too difficult, soaking can help. If the edges of the cut pull apart, then stop removing the ta pe, and follow up with your healthcare provider. 6 General Instructions [facility] Emergency Department [address] [place] [address] Phone #: ext- [phone] 08/12/2020 13:43 Patient: JOSEPH HATCH Sex: F : 2000 Age: 20y If X-rays were taken, you will be told if there are new findings that may affect your care.When to seek medical careCall your healthcare provider right away if any of these occur: Fever of 100.4F (38C) or higher, or as directed by your healthcare provider Increasing pain in the wound Redness, swelling or pus coming from the wound [phone] [employer]. [address] [place] [address], [place] [address]. All rights reserved. This information is not intended as asubstitute for professional medical care. Always follow your healthcare professional's instructions.Splinter RemovalA splinter has been removed from under your skin. Although care was taken to remove all piecespresent, there is a chance that a small piece may have been left behind.Very small particles that remain under the skin usually cause no problem and need no furthertreatment unless an infection develops.You may receive a tetanus shot if needed. You may be given antibiotics to prevent or treat infectionbased on many factors. Some of these factors include location, severity of injury, time since injury,and other concerns.Home careThe following guidelines will help you care for your wound at home: Keep the injured part elevated during the first 2 days to reduce swelling and pain. Keep the wound clean and dry. If a bandage was applied and it becomes wet or dirty, replace it. Otherwise, leave it in place for the first 24 hours. Then, clean the wound daily: o After removing the bandage, wash the area with soap and water. Use a wet cotton swab to loosen and remove any blood or crust that forms. o After cleaning, apply a thin layer of antibiotic ointment. Put on a fresh bandage. Unless told otherwise, you may shower as usual, but do not soak the area in water for at least 1 week. This means no baths or swimming. You may use eotd-gmc-njwoaxa medication for pain, unless another pain medicine was given. Talk with your doctor before using acetaminophen or ibuprofen if you have chronic liver or kidney disease. Also talk with your doctor if you have ever had a stomach ulcer or GI bleeding. 7 General Instructions [facility] Emergency Department [address] [place] [address] Phone #: ext- [phone] 08/12/2020 13:43 Patient: MAMIE, JOSEPH M Sex: F : 2000 Age: 20yFollow-up careFollow up with your healthcare provider, or as advised. Most skin wounds heal within 10 days. Butthere is a risk of infection if there are any particles that are still under the skin. Therefore, check thewound in 2 days for the signs of infection listed below. Any stitches should be removed within 7 to 14days. If surgical tape closures were used, remove them yourself if they have not fallen off after 7days.When to seek medical adviceCall your healthcare provider right away if any of these occur: Increasing pain in the wound Redness, swelling, or pus coming from the wound Fever of 100.4F (38C) or higher, or as directed by your healthcare provider [phone] [employer]. [address] [place] [address]. All rights reserved. This information is not intended as asubstitute for professional medical care. Always follow your healthcare professional's instructions.Bandage ChangeIf the bandage becomes wet or dirty, replace it. Otherwise, leave it in place for the first 24 hours.Then once a day: Remove the bandage and wash the area with soap and water. Use a wet cotton swab to loosen and remove any blood or crust that forms on the wound. After cleaning, apply a thin layer of antibiotic ointment or cream. Put the bandage back on.You can shower as usual after the first 24 hours. If the bandage is on an arm or leg, cover it with aplastic bag rubber-banded at both ends before showering. Take care that the rubber bands are nottoo tight, cutting off circulation to the affected area.Don't take a tub bath or go swimming until the bandage is removed and the wound healed. This willtake at least 7 days.When to seek medical adviceCall your healthcare provider right away if any of these occur with your wound: Fever Redness, warmth, or swelling Pain in the wound gets worse 8 General Instructions [facility] Emergency Department [address] [place] [address] Phone #: ext- [phone] 08/12/2020 13:43 Patient: JOSEPH HATCH Sex: F : 2000 Age: 20y Pus drains when you remove the bandage Red streaks surround the wound area [phone] [employer]. [address] [place] [address]. All rights reserved. This information is not intended as asubstitute for professional medical care. Always follow your healthcare professional's instructions.Laceration: All ClosuresA laceration is a cut through the skin. This will usually require stitches (sutures) or rubio if it is deep.Minor cuts may be treated with a surgical tape closure or skin glue.Home care Your healthcare provider may prescribe an antibiotic. This is to help prevent infection. Follow all instructions for taking this medicine. Take the medicine every day until it is gone or you are told to stop. You should not have any left over. The healthcare provider may prescribe medicines for pain. If no pain medicines were prescribed, you can use qbje-jdl-fbmjzgs pain medicines. Follow instructions for taking any pa in medicines. (Note: If you have chronic liver or kidney disease, or ever had a stomach ulcer or gastrointestinal bleeding, talk with your doctor before using these medicines.) Follow the healthcare provider's instructions on how to care for the cut. Keep the wound clean and dry. Do not get the wound wet until you are told it is OK to do so. If 9 General Instructions [facility] Emergency Department [address] [place] [address] Phone #: ext- [phone] 08/12/2020 13:43 Patient: JOSEPH HATCH Sex: F : 2000 Age: 20y the area gets wet, gently pat it dry with a clean cloth. Replace the wet bandage with a dry one. If a bandage was applied and it becomes wet or dirty, replace it. Otherwise, leave it in place for the first 24 hours. Caring for sutures or rubio: Once you no longer need to keep them dry, clean the wound daily. First, remove the bandage. Then wash the area gently with soap and warm water, or as directed by the healthcare provider. Use a wet cotton swab to loosen and remove any blood or crust that forms. After cleaning, apply a thin layer of antibiotic ointment if advised. Then put on a new bandage unless you are told not to. Caring for skin glue: Don't put apply liquid, ointment, or cream on the wound while the glue is in place. Avoid activities that cause heavy sweating. Protect the wound from sunlight. Do not scratch, rub, or pick at the adhesive film. Do not place tape directly over the film. The glue should peel off within 5 to 10 days. Caring for surgical tape: Keep the area dry. If it gets wet, blot it dry with a clean towel. Surgical tape usually falls off within 7 to 10 days. If it has not fallen off after 10 days, you can take it off yourself. Put mineral oil or petroleum jelly on a cotton ball and gently rub the tape until it is removed. Once you can get the wound wet, you may shower as usual but do not soak the wound in water (no tub baths or swimming) Even with proper treatment, a wound infection may sometimes occur. Check the wound daily for signs of infection listed below.Scalp woundsDuring the first 2 days, you may carefully rinse your hair in the shower to remove blood, glass or dirtparticles. After two days, you may shower and shampoo your hair normally. Do not soak your scalp inthe tub or go swimming until the stitches or rubio have been removed. Talk with your healthcareprovider before applying any antibiotic ointment to the wound.Mouth woundsEat soft foods to reduce pain. If the cut is inside of your mouth, clean by rinsing after each meal andat bedtime with a mixture of equal parts water and hydrogen peroxide (do not swallow!). Or, you canuse a cotton swab to directly apply hydrogen peroxide onto the cut. You may also be prescribed achlorhexidine solution to rise with. Mouth wounds can be painful when eating. You may use sbmdkq-fbx-gbhvkgb local numbing solution for pain relief. If this is not available, you may use anynumbing solution intended for teething babies. You may apply this directly to the sores with acotton-tip swab or with your finger. 10 General Instructions [facility] Emergency Department [address] [place] [address] Phone #: ext- [phone] 08/12/2020 13:43 Patient: JOSEPH HATCH Sex: F : 2000 Age: 20yFollow-up careFollow up with your healthcare provider as advised. Ask your healthcare provider how long suturesshould be left in place. Be sure to return for suture removal as directed. If dissolving stitches wereused in the mouth, these should fall out or dissolve without the need for removal. If tape closureswere used, remove them yourself when your provider recommends if they have not fallen off on theirown. If skin glue was used, the film will wear off by itself. Generally, you should keep healing woundsout of direct sunlight for the first couple of months to try to lessen scarring.When to seek medical adviceCall your healthcare provider right away if any of these occur: Signs of infection, including increasing pain in the wound, increasing wound redness or swelling, or pus or bad odor coming from the wound Fever of 100.4F (38.C) or higher, or as directed by your healthcare provider Stitches or rubio come apart or fall out or surgical tape falls off before 7 days Wound edges reopen Wound changes colors Numbness around the wound after any numbing medicine should have worn off Decreased movement around the injured areaCall 911Call 911 if you can't control the wound bleeding with direct pressure. [phone] [employer]. [address] [place] [address], [place] [address]. All rights reserved. This information is not intended as asubstitute for professional medical care. Always follow your healthcare professional's instructions. You have been given the following additional information: Laceration: All Closures Foreign Body, Soft Tissue (Removed) Splinter Removal Dressing Change Laceration: All Closures 11 General Instructions [facility] Emergency Department [address] [place] [address] Phone #: ext- [phone] 08/12/2020 13:43 Patient: JOSEPH HATCH Sex: F : 2000 Age: 20yLimit use of your right hand for one weeks. Do not work with right hand for one weeks. Do not work forone week.(Electronically signed by Vignesh Perales P.A.-C 08/12/2020 21:56) Name Value Range Interpretation Code Description Data Queta rce(s) Supporting Document(s) ID Date Data Source [id number] 08/12/2020 01:46:00 PM EDT [facility] 1 Clinical Report - Nurses [facility] Emergency Department [address] [place] [address] Phone #: ext- [phone] 08/12/2020 13:43 Patient: JOSEPH HATCH Sex: F : 2000 Age: 20yTRIAGEArrived by private vehicle. Historian: patient. Accompanied by spouse.Triage time: late entry - 13:48 08/12/2020. Acuity: LEVEL 4.Chief Complaint: (Finger follow up).Alert. No acute distress.Onset. (4 days ago). ( Pt states on Saturday she was stress cleaning her cabinets and a shard of woodwent all the way through her right ring finger and it was purple and numb. On Saturday she was seenin this ED, no fx, no FB but was d/c on antbx and she has been taking it however was told if in 3 days it isstill the same to come to ED for I. 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 Sepsis Screen negative. No suspected or confirmed signs ofinfection present. (13:55 08/12/2020). --13:55 08/12/20 Lorene Rogers R.N.13:52 08/12/20. BP: 114/74. MAP: 87. HR: 88. RR: 18. O2 saturation: 97% on room air. Temp: 98.8 F(oral). Pain level now: 5/10. --13:55 08/12/20 Lorene Rogers R.N.Weight: 58.9 kg stated. Height/Length: 63 inches Per Patient. BMI: 23. --13:47 08/12/20 Lorene Rogers R.N.MedicationsSertraline HCl Oral 100 mg, daily. --13:52 08/12/20 Lorene Rogers R.N. Keflex Oral 500 mg, q8h. --13:52 08/12/20 Lorene Rogers R.N. Control Pills 1 pill, daily. --13:52 08/12/20 Lorene Rogers R.N.AllergiesNo Known Drug Allergy. --13:52 08/12/20 Lorene Rogers R.N.PROBLEMS:Cellulitis. --13:53 08/12/20 Lorene Rogers R.N.ADDITIONAL SURGERIES:Right hand cyst removal.[place] teeth extraction. --13:53 08/12/20 Lorene Rogers R.N.HistoryPAST MEDICAL HX: Immunizations: up-to-date. Last normal menstrual period- 07/31/2020. 2 Clinical Report - Nurses [facility] Emergency Department [address] [place] [address] Phone #: ext- [phone] 08/12/2020 13:43 Patient: JOSEPH HATCH Sex: F : 2000 Age: 20y SOCIAL HX: Never smoker. No alcohol use or drug use. She was offered HIV testing but declined. Patient education was provided. She was offered hepatitis C testing but declined. Patient education was provided. ( COVID screen negative). She has not traveled outside the [place] Infectious disease exposure: No infectious disease exposure. Patient is not a known carrier of tuberculosis, hepatitis, HIV, MRSA or VRE. Patient is not a known carrier of CRE. SELF HARM ASSESSMENT: Self harm assessment was performed. The patient answered "no" to the question(s) "Do you have thoughts of harming or killing yourself?" and "Do you have a plan for harming or killing yourself?". ABUSE ASSESSMENT: Abuse assessment. The patient had positive responses to the question(s) "Do you feel safe in your home?". Abuse denied. No suspicion of abuse. No report of abuse. NUTRITIONAL RISK ASSESSMENT: The nutritional risk assessment revealed no deficiencies. FUNCTIONAL ASSESSMENT: Functional assessment: no impairments noted. LEARNING NEEDS ASSESSMENT: The learning needs assessment revealed no bar riers. FALL RISK ASSESSMENT: Fall risk assessment completed. No risk factors identified. SKIN INTEGRITY ASSESSMENT: Skin integrity risk assessment completed. No skin integrity risk identified. --13:55 08/12/20 Lorene Rogers R.N. Interventions Identification band on patient. --13:55 08/12/20 Lorene Rogers R.N.PHYSICAL ASSESSMENTAmbulatory to room.GENERAL / NEURO / PSYCH: Alert. Oriented X 4. Appears in no acute distress.HEENT: No facial asymmetry noted. Mucous membranes are pink.RESPIRATORY: Respirations not labored.SKIN: Skin is warm and dry. ( Pt has small puncture wound to right 4th digit, on the tip, tip of finger is hardtot he touch, slightly swollen and small amount of ecchymosis.). --13:56 08/12/20 Lorene Rogers R.N.NURSING PROGRESS NOTESReassurance given. Three patient identifiers checked. Call light placed in reach. Side rails up x 2. Bedplaced in lowest position. Brakes of bed on. Patient ready for evaluation- PA notified. --13:56 08/12/20Lorene Rogers R.N. Right ring finger: applied clean bulky dressing consisting of Tegaderm, following the application of antibiotic ointment (bacitracin). Secured with tape. --16:42 08/12/20 Abdi Castellon R.N. 16:37 08/12/2020 Bacitracin Zinc Topical Ointment 1 application given. Applied to the affected area. 3 Clinical Report - Nurses [facility] Emergency Department [address] [place] [address] Phone #: ext- [phone] 08/12/2020 13:43 Patient: JOSEPH HATCH Sex: F : 2000 Age: 20y Allergies verified and confirmed 5 rights. Information reviewed with patient and spouse including reason for taking this medication, signs of allergic reaction and precautions. Verbalizes understanding. --16:42 08/12/20 Abdi Castellon R.N.DISPOSITION / DISCHARGE 16:53 08/12/20. Departure time: 16:58 08/12/2020. Condition at departure: improved and stable. The goals identified in the patient's plan of care were met. Fall risk assessment completed. No risk factors identified. No learning barriers present. Discharge instructions provided and reviewed with the patient. Reviewed warnings. Reviewed medication(s) side effects, precautions, dosing and course information. Prescription(s) sent electronically to pharmacy. Reviewed wound care instructions. Reviewed referral to a primary care physician. Patient verbalized understanding. Written instructions provided in Sen[place]. 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 She was discharged home and accompanied by hotel yardperson. She left ambulatory and via private vehicle. Certified Art Therapist driving. --17:00 08/12/20 Abdi Castellon R.N. 16:48 08/12/20. BP: 120/74. MAP: 89. HR: 87. RR: 16. O2 saturation: 100%. Temp: 99.1 F. Pain level now: 02/08. --17:00 08/12/20 Abdi Castellon R.N.Locked/Released at 08/12/2020 17:18 by Abdi Castellon R.N. Name Value Range Interpretation Code Description Data Queta rce(s) Supporting Document(s) ID Date Data Source [id number] 08/12/2020 01:46:00 PM EDT [facility] 1 Clinical Report - Physicians/Mid Levels [facility] Emergency Department [address] [place] [address] Phone #: ext- [phone] 08/12/2020 13:43 Patient: JOSEPH HATCH Sex: F : 2000 Age: 20y Time Seen: 14:13 08/12/2020. Arrived- By private vehicle. Historian- patient.HISTORY OF PRESENT ILLNESS Chief Complaint: Injury to the right ring finger. The injury happened about 5 days ago. Occurred at home. The patient sustained a direct blow. Patient is experiencing mild pain. No injury to the head or neck or other injury. ( Pt sts that she was cleaning cupboards on and got what she thought was a wood sliver. Still bothered her and she came to the ER on Saturday adn had imagign and placed on abx. Informed if not better to come to the ER. PT presents as it hasn't gotten worse, but also hasnt gotten better. Still feels pain with certain movements and touching. No edema, erythema, or discharge noted. Sts she feels as if a FB is in there, but not near ? insertion site and path of ? FB there is no injury to the skin.).REVIEW OF SYSTEMSThe patient has had tingling, and numbness. No swelling, weakness, foreign body or skin laceration. Allother systems reviewed and are negative.PAST HISTORYSee nurses notes. The patient's dominant hand is the right. Tetanus immunization status is up-to-date. Problems: Abrasion(s). Cellulitis. Additional Surgeries: Right hand cyst removal. [place] teeth extraction. Medications: Control Pills 1 pill, daily. Keflex Oral 500 mg, q8h. Sertraline HCl Oral 100 mg, daily. Allergies: No Known Drug Allergy.SOCIAL HISTORYNever smoker. No alcohol use or drug use. 2 Clinical Report - Physicians/Mid Levels [facility] Emergency Department [address] [place] [address] Phone #: ext- [phone] 08/12/2020 13:43 Patient: JOSEPH HATCH Sex: F : 2000 Age: 20yADDITIONAL NOTESThe nursing notes have been reviewed.PHYSICAL EXAMVital Signs: 08/12/2020 13:52 BP: 114/74. MAP: 87. HR: 88. RR: 18. O2 saturation: 97% on room air.Temp: 98.8 F. Pain level now: 5/10. Have been reviewed. Oxygen saturation normal.Appearance: Alert. Oriented X3. No acute distress.Head: Head atraumatic.ENT: Voice normal.CVS: Normal heart rate and rhythm. No JVD present. Pulses normal. Capillary refill normal. Strongperipheral pulses. Heart sounds normal. Pulses: right radial 2+; left radial 2+.Respiratory: Chest normal on inspection. No respiratory distress. Unlabored respirations. Lungs clear.Good chest movement. Breath sounds normal and equal.Skin: Skin warm and dry.Extremities: Right ring finger: mild tenderness of the volar aspect. Neurovascular intact distally. (Notedinduration to the volar aspect of hte finger). No erythema, swelling, laceration, abrasion or ecchymosis. Nopuncture w ound or deformity. No limitation in movement. No subungual hematoma or amputation present.No wrist injury. No hand injury. Extremities otherwise negative.Neuro, Vascular and Tendons: Sensation intact. Motor intact.Neuro: Awake. Alert. Mood/affect normal. Speech normal.Psych: Cognition normal. Thought process and content normal. Insight and judgement normal.LABS, X-RAYS, AND EKGDuplex Ultrasound: Junior rondon Michael - 08/12/2020 3:15:20 PMSubtle area of 6 mm x 1 mm linear increased echogenicity suggestive of a possible wood splinter. Thestudy was interpreted by the radiologist and discussed with the radiologist.PROGRESS AND PROCEDURESDigital Nerve Block - Finger: Time-out completed immediately before the procedure. Digital nerve blockperformed on the right ring finger. Web space approach utilized. Landmarks identified. Skin prepped.Total volume of 2 mL 1% Lidocaine infiltrated using a 23-gauge needle. Patient cooperative duringprocedure. No complications encountered. Excellent anesthesia achieved.Removal of Soft Tissue Foreign Body: Time-out completed immediately before the procedure. Theforeign body was wood. Located in the right ring finger. Prior to the procedure the risks, benefits andalternatives to the procedure were explained and consent was obtained. Anesthesia provided by digitalblock using 1% lidocaine. Wound prepped with chlorhexidine and sterile field employed. Wound explored.Incision made with a #10 blade. Foreign body palpated and removed using forceps. The foreign bodyremoved was subcutaneous. Dressing applied. Tetanus immunization up-to-date.Laceration Repair: Location: right ring finger. Length: 1.5cm. Complexity: simple (sutured).Wound depth/shape- subcutaneous. Distal neuro/vascular/tendon status normal. Anesthesia providedby digital block using 1% lidocaine. Prepped with chlorhexidine. Wound cleansed. Closure of superficiallayer: interrupted 5-0 Prolene (1 sutures). Post-procedure: she is stable and there are no complications.Bleeding is controlled and neuro-vascular status is intact distal to the wound. Dressing applied. Tetanusimmunization up-to-date. ( Utilzed 1 suture to close approximate.). 3 Clinical Report - Physicians/Mid Levels [facility] Emergency Department [address] [place] [address] Phone #: ext- [phone] 08/12/2020 13:43 Patient: JOSEPH HATCH Sex: F : 2000 Age: 20y Course of Care: VSS, NAD, AOx3, interacting well and appropriately, no use of accessory muscle, able to speak full sentences, stable, non-toxic looking. Enter room and pt lying peacefully in bed in NAD. Patient stable. Denies any new issues, concerns, or complaints. Pt sts that she was cleaning cupboards on and got what she thought was a wood sliver. Still bothered her and she came to the ER on Saturday adn had imagign and placed on abx. Informed if not better to come to the ER. PT presents as it hasn't gotten worse, but also hasnt gotten better. Still feels pain with certain movements and touching. No edema, erythema, or discharge noted. PE demos NV intact b/l UE. Noted induration of volar aspect of R ring finger. ? FB, but not near ? insertion site and path of ? FB there is no injury to the skin. ? hematoma. Will obtian US to eval. No infection noted. No need ot Ias there is nothing. Atte nding evals and agrees with this observation. Pending results. Got US results that demos a wood splinter. WIll remove and pt gives verbal consent for this. Able to remove splinter. PT tolerated well. Enter room and patient lying peacefully in bed in NAD. Patient stable. Denies any new issues, concerns, or complaints. Discussed results with pt. Discussed tx plan with pt. Discussed and counseled on stable condition. Discussed importance of a f/u with PCP. Discussed return to ER criteria. Answered their questions. Indicates and verbalizes that they understand, agree, and will comply with above. Denies any new questions or concerns. Patient has capacity to understand. Discharge decision based on the following: patient's condition is stable; patient's exam is stable; social support is adequate; transportation is available; follow-up is available. Discussed of OTC Motrin and Tylenol to control inflammation and pain management. Informed to follow directions on bottle that are appropriate for age and/or weight. Disposition: Discharged home in good and improved condition. Condition: good and stable.CLINICAL IMPRESSION Single superficial laceration to the right ring finger. Foreign body present. No right fingernail injury. Removal of superficial wooden soft tissue foreign body to the right ring finger. Puncture wound and laceration present. No right fingernail injury. 4 Clinical Report - Physicians/Mid Levels [facility] Emergency Department [address] [place] [address] Phone #: ext- [phone] 08/12/2020 13:43 Patient: JOSEPH HATCH Sex: F : 2000 Age: 20yINSTRUCTIONS Protect wound and keep wound area clean. Change dressing daily. Keep wounds dry. Apply bacitracin twice daily. Sutures/rubio should be removed in seven days. Limit use of your right hand for one weeks. Do not work with right hand for one weeks. Do not work for one week. No dietary restrictions. (Recommend to utilize OTC Motrin and Tylenol to control inflammation and pain management. Recommend to follow the instructions on the bottle and not to exceed. Recommend to utilize OTC antibiotic ointment to help control possible skin infection and help promote wound healing and care.). Warnings: COMPLICATIONS: Complications from this condition are possible. INFECTION: Watch for signs of infection (increasing heat and redness, pus-like drainage, swelling, or increased pain). Return or see your doctor if these signs occur. Prescription monitor program consulted by me. Prescription does not exceed state maximum supply of medications Prescription Medications: Hollywood 5 mg- 325 mg tablet Take 1 tablet three times a day for 2 days -- Dispense 6 tablet. Refills: 0. Substitution permitted. Pharmacy - [facility] [phone] ; [place] [address]. FaxNumber: . Hollywood 5 mg-325 mg tablet Take 1 tablet three times a day for 2 days -- Dispense 6 tablet. Refills: 0. Substitution permitted. Note to Pharmacy - laceration w/ removal of FB. Pharmacy - [facility] [address] ; [place] [address]. . Follow- up: Return to the emergency department as needed. Follow up with your healthcare provider in about two days. Understanding of the discharge instructions verbalized by patient. 5 Clinical Report - Physicians/Mid Levels [facility] Emergency Department [address] [place] [address] Phone #: ext- [phone] 08/12/2020 13:43 Patient: JOSEPH HATCH Sex: F : 2000 Age: 20y(Electronically signed by Vignesh Perales P.A.-C 08/12/2020 21:56) Name Value Range Interpretation Code Description Data Queta rce(s) Supporting Document(s) ID Date Data Source [id number] 08/11/2020 11:43:00 AM EDT [facility] [address] [place] [address] PHONE: [phone] FAX: [phone] Name .................. : MAMIE Ward Acct Number.................. : [id number] ROOM. ................. : TR-1A MR Number ................... : [id number] Stay type ............. : E/R Discharge Date......... ... : 08/10/20 Admit Date ......... : 08/10/20 Admit Phys .................... : COONEYNORM Date of ....... : 2000 Family Phys ................... : NO PCP Phone .................. : [phone] Age ................................ : 20 Film# .................. .:[id number] Sex ................................. : F Unsigned transcriptions are preliminary reports and do not represent a medical or legal document FINGERS RT [id number] COMPLETE:08/10/20 17:54 MARICRUZ [id number] Reason(s): Foreign Body RIGHT FOURTH FINGER X-RAY: 4- VIEWS INDICATION: Foreign body. FINDINGS: No fracture or dislocation. No significant degenerative change. No foreign body. IMPRESSION: No fracture or dislocation. No foreign body. Electronically Reviewed and Signed By Manuel Dejesus MD , 08/11/20 11:43, FAVIAN Transcribe Initials: VASQUEZ , Transcribe Date: 08/10/20 21:53, Dictation Date: Copy for: EMERGENCY DEPT via modem Copy for: 710 MED REC DISCHARGED Page 1 of 1 Name Value Range Interpretation Code Description Data Queta rce(s) Supporting Document(s) ID Date Data Source [id number] 08/10/2020 12:44:00 PM EDT [facility] 1 OrderSheet [facility] Emergency Department [address] [place] [address] Phone #: ext- [phone] 08/10/2020 12:31 Patient: JOSEPH HATCH Sex: F : 2000 Age: 20yWEIGHT:58.9 kg (S) HEIGHT:63 inches (S) BMI:23.0ALLERGIES: No Known Drug AllergyDIAGNOSIS: Cellulitis of skin, AbrasionLAB ORDERSOrder Description Priority Entered Acknowledged InitialedDIAGNOSTIC STUDY ORDERSOrder Description Priority Entered Acknowledged InitialedFingers Right STAT 12:46 08/10/2020 12:47 Janet(Oxygen?(No)) Alex Paredes MD; Jarrod GOFF NOTES: ? piece of wood to finger, distal to dip, volar aspect Reason for Study: Foreign BodyMEDICATION/IV/DRIP/FLUID ORDERSOrder Description Priority Entered Acknowledged InitialedMotrin 600 mg PO 12:46 08/10/2020 12:50 DorisX1 dose: 600 mg Alex Paredes MD; Jarrod RN(NOW x1)Tylenol PO 650 mg 12:46 08/10/2020 12:50 Janet(NOW x1) Alex Paredes MD; Jarrod RNGENERAL ORDERSOrder Description Priority Entered Acknowledged Initialed[Electronically signed by Janet Garay RN (14:08/10/2020)][Electronically signed by Alex Paredes MD (23:07 08/10/2020)][Electronically locked by Janet Garay RN (14:08/10/2020)] Name Value Range Interpretation Code Description Data Queta rce(s) Supporting Document(s) ID Date Data Source [id number] 08/10/2020 12:44:00 PM EDT [facility] 1 Medication Reconciliation Report [facility] Emergency Department [address] [place] [address] Phone #: ext [phone] 08/10/2020 12:31 Patient: JOSEPH HATCH Sex: F : 2000 Age: 20yWeight: 58.9 kgHeight/Length: 63 in.BMI: 23.0ALLERGIES: No Known Drug AllergyThe patient's Home Medications are listed below:CONTINUE TAKING THE FOLLOWING MEDICATIONS: Sertraline HCl Oral 100 mg, dailyThe source(s) of the original Home Medication information:patientThe following Medications were given to the patient in the Emergency Department:Motrin [PO] PO 600 mg, administered: 08/10/2020 12:50:00 PMTylenol [PO] PO 650 mg, administered: 08/10/2020 12:50:00 PMThe following Medications were prescribed to the patient:Keflex 500 mg: take 1 capsule orally every 8 hours for 7 days. No refill. Substitution is permissible. --Alex Paredes MD Name Value Range Interpretation Code Description Data Queta rce(s) Supporting Document(s) ID Date Data Source [id number] 08/10/2020 12:44:00 PM EDT [facility] 1 Medication Administration Record [facility] Emergency Department [address] [place] [address] Phone #: ext- [phone] 08/10/2020 12:31 Patient: JOSEPH HATCH Sex: F : 2000 Age: 20yWeight: 58.9 kgHeight/Length: 63 inBMI: 23ALLERGIES: No Known Drug Allergy Date/Time Medication Administered Medication OrderedGiven MOTRIN [PO] (IBUPROFEN) Motrin 600 mg PO X1 dose: 61361:50 08/10/2020 Dose: 600 mg Tablets PO mg (NOW x1)Janet Garay RNGiven TYLENOL [PO] (APAP) Tylenol PO 650 mg (NOW x1)12:50 08/10/2020 Dose: 650 mg Tablets PODoris Hagenston, RN Name Value Range Interpretation Code Description Data Queta e(s) Supporting Document(s) ID Date Data Source [id number] 08/10/2020 12:44:00 PM EDT [facility] 1 General Instructions [facility] Emergency Department [address] [place] [address] Phone #: ext- [phone] 08/10/2020 12:31 Patient: JOSEPH HATCH Sex: F : 2000 Age: 20yAbrasion to the right ring finger.Cellulitis of the right ring finger.INSTRUCTIONSDo not work for three days.(You need a wound check in 1- 2 days. please either f/u with your doctor or return to the ED forre-evaluation. if your pain or symptoms become worse, please return immediately for re- evaluation. I amnot 100% convinced that you do not have a foreign body. There is no evidence of foreign body on xray,but sometimes wood does not show up on xray. if the symptoms persist or infection develops, you mayneed your finger to be explored at the site of concern for possible foreign body. Take tylenol and motrinfor pain.).Warnings: Further evaluation is necessary.GENERAL WARNINGS: Return or contact your physician immediately if your condition worsens orchanges unexpectedly, if not improving as expected, or if other problems arise.Your Current Medications: Your current home medications have been reviewed.CONTINUE TAKING THE FOLLOWING MEDICATIONS:Sertraline HCl Oral : 100 mg daily.Prescription Medications:Keflex 500 mg: take 1 capsule orally every 8 hours for 7 days. No refill. Substitution is permissible.Understanding of the discharge instructions verbalized by patient. ADDITIONAL INFORMATIONCellulitisCellulitis is an infection of the deep layers of skin. A break in the skin, such as a cut or scratch, can letbacteria under the skin. If the bacteria get to deep layers of the skin, it can be serious. If not treate d,cellulitis can get into the bloodstream and lymph nodes. The infection can then spread throughout thebody. This causes serious illness.Cellulitis causes the affected skin to become red, swollen, warm, and sore. The reddened areas havea visible border. An open sore may leak fluid (pus). You may have a fever, chills, and pain. 2 General Instructions [facility] Emergency Department [address] [place] [address] Phone #: ext- [phone] 08/10/2020 12:31 Patient: JOSEPH HATCH Sex: F : 2000 Age: 20yCellulitis is treated with antibiotics taken for 7 to 10 days. An open sore may be cleaned and coveredwith cool wet gauze. Symptoms should get better 1 to 2 days after treatment is started. Make sure totake all the antibiotics for the full number of days until they are gone. Keep taking the medicine even ifyour symptoms go away.Home careFollow these tips: Limit the use of the part of your body with cellulitis. If the infection is on your leg, keep your leg raised while sitting. This will help to reduce swelling. Take all of the antibiotic medicine exactly as directed until it is gone. Do not miss any doses, especially during the first 7 days. Don't stop taking the medicine when your symptoms get better. Keep the affected area clean and dry. Wash your hands with soap and warm water before and after touching your skin. Anyone else who touches your skin should also wash his or her hands. Don't share towels.Follow-up careFollow up with your healthcare provider, or as advised. If your infection does not go away on the firstantibiotic, your healthcare provider will prescribe a different one.When to seek medical adviceCall your healthcare provider right away if any of these occur: Red areas that spread Swelling or pain that gets worse Fluid leaking from the skin (pus) Fever higher of 100.4 F (38.0 C) or higher after 2 days on antibiotics [id number] [employer]. [address] [place] [address], [place] [address]. All rights reserved. This information is not intended as asubstitute for professional medical care. Always follow your healthcare professional's instructions.Cephalexin tablets or capsulesWhat is this medicine? 3 General Instructions [facility] Emergency Department [address] [place] [address] Phone #: ext- [phone] 08/10/2020 12:31 Patient: JOSEPH HATCH Sex: F : 2000 Age: 20yCEPHALEXIN (sef a JAYDEN in) is a cephalosporin antibiotic. It is used to treat certain kinds of bacterialinfections It will not work for colds, flu, or other viral infections.How should I use this medicine?Take this medicine by mouth with a full glass of water. Follow the directions on the prescription label.This medicine can be taken with or without food. Take your medicine at regular intervals. Do not takeyour medicine more often than directed. Take all of your medicine as directed even if you think youare better. Do not skip doses or stop your medicine early.Talk to your clipper operator regarding the use of this medicine in children. While this drug may beprescribed for selected conditions, precautions do apply.What side effects may I notice from receiving this medicine?Side effects that you should report to your doctor or health personal care assistant as soon as possible: allergic reactions like skin rash, itching or hives, swelling of the face, lips, or tongue breathing problems pain or trouble passing urine redness, blistering, peeling or loosening of the skin, including inside the mouth severe or watery diarrhea unusually weak or tired yellowing of the eyes, skinSide effects that usually do not require medical attention (report to your doctor or health careprofessional if they continue or are bothersome): gas or heartburn genital or anal irritation headache joint or muscle pain nausea, vomitingWhat may interact with this medicine? probenecid some other antibiotics 4 General Instructions [facility] Emergency Department [address] [place] [address] Phone #: jbs- [phone] 08/10/2020 12:31 Patient: JOSEPH HATCH Sex: F : 2000 Age: 20yWhat if I miss a dose?If you miss a dose, take it as soon as you can. If it is almost time for your next dose, take only thatdose. Do not take double or extra doses. There should be at least 4 to 6 hours between doses.Where should I keep my medicine?Keep out of the reach of children.Store at room temperature between 59 and 86 degrees F (15 and 30 degrees C). Throw away anyunused medicine after the expiration date.What should I tell my health care provider before I take this medicine?They need to know if you have any of these conditions: kidney disease stomach or intestine problems, especially colitis an unusual or allergic reaction to cephalexin, other cephalosporins, penicillins, other antibiotics, medicines, foods, dyes or preservatives or trying to get breast-feedingWhat should I watch for while using this medicine?Tell your doctor or health personal care assistant if your symptoms do not begin to improve in a few days.Do not treat diarrhea with over the counter products. Contact your doctor if you have diarrhea thatlasts more than 2 days or if it is severe and watery.If you have diabetes, you may get a false-positive result for sugar in your urine. Check with yourdoctor or health personal care assistant.NOTE:This sheet is a summary. It may not cover all possible information. If you have questions about this medicine, talk to your doctor, pharmacist, orhealth care provider. Copyright 2019 [employer] You have been given the following additional information: Cellulitis Skin Infection Cephalexin tablets or capsules 5 General Instructions [facility] Emergency Department [address] [place], [place] [address] Phone #: ext- [phone] 08/10/2020 12:31 Patient: JOSEPH HATCH Sex: F : 2000 Age: 20yDo not work for three days.(Electronically signed by Alex Paredes MD 08/10/2020 23:07) Name Value Range Interpretation Code Description Data Queta rce(s) Supporting Document(s) ID Date Data Source [id number] 08/10/2020 12:44:00 PM EDT [facility] 1 Clinical Report - Nurses [facility] Emergency Department [address] [place] [address] Phone #: ext- [phone] 08/10/2020 12:31 Patient: JOSEPH HATCH Sex: F : 2000 Age: 20yTRIAGEArrived by private vehicle. Historian: patient.Acuity: LEVEL 4.Chief Complaint: possible sliver.Alert. No acute distress.Reported as (right ring finger). Onset. (three days ago). It is described as painful. ( patient was cleaningher wooden cabinets when a shard of wood was caught in her distal ring finger. cannot visualize if she hasa sliver, reports numbness.). No fever or itching. 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 No suspected or confirmed signs of infection present. --12: Yamilet Reardon R.N.12:33 08/10/20. BP: 121/80. MAP: 93. HR: 88. RR: 16. O2 saturation: 96%. Temp: 98.9 F. Pain level now:04/10. --12:38 9/9/20 Yamilet Reardon R.N.Weight: 58.9 kg stated. Height/Length: 63 inches Per Patient. BMI: 23. --12:33 08/10/20 Yamilet Reardon R.N.MedicationsSertraline HCl Oral 100 mg, daily. --12:35 08/10/20 Yamilet Reardon R.N.AllergiesNo Known Drug Allergy. --12:35 08/10/20 Yamilet Reardon R.N.PROBLEMS:no known problems.Medication/allergy information source: the patient. --12:38 08/10/20 Yamilet Reardon R.N.ADDITIONAL SURGERIES:Right hand cyst removal.[place] teeth extraction. --12:36 08/10/20 Yamilet Reardon R.N.HistoryPAST MEDICAL HX: Immunizations: up-to-date. Last normal menstrual period was 1 week ago. Denies urrent . 2 Clinical Report - Nurses [facility] Emergency Department [address] [place] [address] Phone #: ext- [phone] 08/10/2020 12:31 Patient: JOSEPH HATCH Sex: F : 2000 Age: 20y SOCIAL HX: Never smoker. No alcohol use or drug use. She was offered HIV testing but declined and hepatitis C testing but declined. She has not traveled outside the [place] Infectious disease exposure: No infectious disease exposure. Th e patient was not exposed to C-diff, MRSA, VRE, CRE or Coronavirus. SELF HARM ASSESSMENT: Self harm assessment was performed. The patient answered "no" to the question(s) "Have you recently felt down, depressed, or hopeless?", "Do you have thoughts of harming or killing yourself?", "Do you have a plan for harming or killing yourself?", "Have you recently had thoughts about harming or killing others?", "Do you have any dangerous items in your possession?", "Have you noticed less interest or pleasure in doing things?", "Are you here because you tried to hurt yourself?" and "Have you ever tried to hurt yourself before today?". ABUSE ASSESSMENT: No report of abuse. NUTRITIONAL RISK ASSESSMENT: The nutritional risk assessment revealed no deficiencies. FUNCTIONAL ASSESSMENT: Functional assessment: no impairments noted. LEARNING NEEDS ASSESSMENT: The learning needs assessment revealed no barriers. FALL RISK ASSESSMENT: Fall risk assessment completed. No risk factors identified. SKIN INTEGRITY ASSESSMENT: Skin integrity risk assessment completed. No skin integrity risk identified. --12:38 08/10/20 Yamilet Reardon R.N.PHYSICAL UCQUNZMOKD17:45 08/10/20. Ambulatory to room.GENERAL / NEURO / PSYCH: Alert. The patient does not appear to be in acute distress. Oriented X 4.RESPIRATORY: Respirations not labored.SKIN: Skin is warm and dry. Tenderness on the right ring finger. Erythema present. No skin rash.--12:46 08/10/20 Janet Garay RN.NURSING PROGRESS NOTESHead of bed elevated. Reassurance given. Bed placed in lowest position. Brakes of bed on. Patientready for evaluation. --12:38 08/10/20 Yamilet Reardon R.N. 12:50 08/10/2020 Motrin (Ibuprofen) PO Tablets 600 mg given. Allergies verified and confirmed 5 rights. Information reviewed with patient including reason for taking this medication, signs of allergic reaction and precautions. Verbalizes understanding. --12:50 08/10/20 Janet Garay RN 12:50 08/10/2020 Tylenol (APAP) PO Tablets 650 mg given. Allergies verified and confirmed 5 rights. Information reviewed with patient including reason for taking this medication, signs of allergic reaction and precautions. Verbalizes understanding. --12:50 08/10/20 Janet Garay RN 3 Clinical Report - Nurses [facility] Emergency Department [address] [place] [address] Phone #: ext- [phone] 08/10/2020 12:31 Patient: JOSEPH HATCH Sex: F : 2000 Age: 20y 12:52 08/10/20. Patient walked to radiology with elevator technician. --12:52 08/10/20 Janet Garay RN 12:58 08/10/20. Patient walked back from radiology with elevator technician. --13:23 08/10/20 Janet Garay RN 13:54 08/10/20. BP: 121/78. MAP: 92. HR: 76. RR: 16. O2 saturation: 99%. --13:55 08/10/20 [facility] Tech1.DISPOSITION / DISCHARGE 14:18 08/10/20. BP: 117/78. MAP: 91. HR: 75. RR: 16. O2 saturation: 99%. Temp: 98.2 F. --14:18 08/10/20 [facility] Tech1 14:24 08/10/20. Condition at departure: stable. No learning barriers present. Reviewed medication(s) side effects, precautions, dosing and course information. Prescription(s) sent electronically to pharmacy ([facility]). Patient verbalized understanding. Written instructions provided in Senegalese. The patient was discharged home. She left ambulatory and via private vehicle. Patient driving. --14:25 08/10/20 Janet Garay RN 14:24 08/10/20. Pain level now: 02/08. --14:26 08/10/20 Janet Garay RN.Locked/Released at 08/10/2020 14:26 by Janet Garay RN Name Value Range Interpretation Code Description Data Queta rce(s) Supporting Document(s) ID Date Data Source [id number] 0001 08/10/2020 12:44:00 PM EDT [facility] 1 Clinical Report - Physicians/Mid Levels [facility] Emergency Department [address] [place] [address] Phone #: ext- [phone] 08/10/2020 12:31 [id number] Sex[facility] F : 2000 Age: 20y Arrived- By private vehicle. Historian- patient. Disposition decision: 14:11 08/10/2020.HISTORY OF PRESENT ILLNESS Chief Complaint: finger injury. This started 3 days ago and is still present. No loss of appetite, weight loss, headache, visual disturbance or fatigue. No muscle aches or weakness. Denies sleep problem. No decreased urine output. (Onset. (three days ago). It is described as painful. ( patient was cleaning her wooden cabinets when a shard of wood was caught in her distal ring finger. cannot visualize if she has a sliver, reports numbness to a very small area of the volar aspect of the distal pad of the ring finger on the right.). No fever or itching. Not itchy or burning. pt is right handed. she works at [employer]. she uses her hands a lot.). Similar symptoms previously. None. Recent medical care: Not recently seen/assessed.REVIEW OF SYSTEMSNo fever, sore throat or throat, sinus drainage or nasal congestion. No cough, difficulty breathing or chestpain or pain. No abdominal pain or pain, nausea, vomiting or diarrhea. No black stools or stools, bloodystools or stools or chills. No difficulty with urination or urination, skin rash or back pain or pain. No calfpain or pain, headache or blackouts. No double vision or vision, chills, fatigue or fever. No ear pain,epistaxis, cough, difficulty breathing or constipation. No diarrhea, nausea, vomiting, urinary frequency orhematuria. No joint pain. No difficulty with ambulation. The patient has had skin rash.PAST HISTORYSee nurses notes. Problems: no known problems. Medications: Sertraline HCl Oral 100 mg, daily. Allergies: No Known Drug Allergy.SOCIAL HISTORYNo drug use.ADDITIONAL NOTESThe nursing notes have been reviewed. 2 Clinical Report - Physicians/Mid Levels [facility] Emergency Department [address] [place] [address] Phone #: ext- [phone] 08/10/2020 12:31 Patient: JOSEPH HATCH Sex: F : 2000 Age: 20yPHYSICAL EXAMVital Signs: 08/10/2020 14:24 Pain level now: 02/08.08/10/2020 14:18 BP: 117/78. MAP: 91. HR: 75. RR: 16. O2 saturation: 99%. Temp: 98.2 F.08/10/2020 13:54 BP: 121/78. MAP: 92. HR: 76. RR: 16. O2 saturation: 99%.08/10/2020 12:33 BP: 121/80. MAP: 93. HR: 88. RR: 16. O2 saturation: 96%. Temp: 98.9 F. Pain levelnow: 04/10. Have been reviewed and appear to be correct. Blood pressure normal. Heart rate normal.Respiratory rate normal. Temperature normal. Oxygen saturation normal.Appearance: Alert. No acute distress.Eyes: Pupils equal, round and reactive to light. Eyes normal inspection.ENT: Ears nor mal. Nose normal.Neck: Normal inspection. Neck supple.CVS: Normal heart rate and rhythm. Heart sounds normal. Pulses normal.Respiratory: No respiratory distress. Breath sounds normal. Chest nontender.Abdomen: No visible injury. Soft and nontender. Bowel sounds normal.Back: Normal inspection. No CVA tenderness.Skin: Skin warm and dry. Normal skin color. No rash. Normal skin turgor. (small abrasion to pt's rightring finger. tenderness to the pad).Extremities: Extremities exhibit normal ROM. No lower extremity edema.Neuro: Oriented X 3. No motor deficit. No sensory deficit.LABS, X-RAYS, AND EKGLaboratory Tests: Fingers Right: (BOY: 08/10/2020 12:46) ( MsgRcvd 08/10/2020 17:55) In Progress FINGERS RT Reason(s): Foreign Body TRANSPORTATION: A IV? O2? Oxygen?(No) Room: ED : No CMTS: ? piece of wood to finger, distal to dip, volar asp.PROGRESS AND PROCEDURESCourse of Care: xray shows no fb. however, wood sometimes is not visible. I discussed this with thepatient. no obvious felon, however, this is in the differential. I discussed with the patient the need for abxand to perhaps open the area of concern. she opted not to open the distal chadwick or incise it. I encouragedher to return in 1-2 days for a wound check. if at that time it was not better, then she may need to stronglyconsider allowing the doctor or provider to further explore the possibility of an abscess or foreign body tothe pad of the finger. pt was agreeable to return if worse or not better. pt's td utd. Patient/family counseled. Disposition: Condition: good and stab le.CLINICAL IMPRESSION 3 Clinical Report - Physicians/Mid Levels [facility] Emergency Department [address] [place] [address] Phone #: ext- [phone] 08/10/2020 12:31 Patient: JOSEPH HATCH Sex: F : 2000 Age: 20y Abrasion to the right ring finger. Cellulitis of the right ring finger.INSTRUCTIONS Do not work for three days. (You need a wound check in 1-2 days. please either f/u with your doctor or return to the ED for re- evaluation. if your pain or symptoms become worse, please return immediately for re-evaluation. I am not 100% convinced that you do not have a foreign body. There is no evidence of foreign body on xray, but sometimes wood does not show up on xray. if the symptoms persist or infection develops, you may need your finger to be explored at the site of concern for possible foreign body. Take tylenol and motrin for pain.). Warnings: Further evaluation is necessary. GENERAL WARNINGS: Return or contact your physician immediately if your condition worsens or changes unexpectedly, if not improving as expected, or if other problems arise. Your Current Medications: Your current home medications have been reviewed. CONTINUE TAKING THE FOLLOWING MEDICATIONS: Sertraline HCl Oral : 100 mg daily. Prescription Medications: Keflex 500 mg: take 1 capsule orally every 8 hours for 7 days. No refill. Substitution is permissible. Understanding of the discharge instructions verbalized by patient.(Electronically signed by Alex Paredes MD 08/10/2020 23:07) Name Value Range Interpretation Code Description Data Queta rce(s) Supporting Document(s) ID Date Data Source GATS (NEGATIVE STREP SCREEN) 01/10/2020 12:00:00 AM EST eCW1 ([facility]) Name Value Range Interpretation Code Description Data Queta rce(s) Supporting Document(s) FULL REPORT IN LAB NOTES (eCW and Medent). GATS CULTURE (NEG STREP SCR) eCW1 ([facility]) Procedure Social History Code Duration Value Status Description Data Source(s ) Alcohol intake 10/26/2020 12:00:00 AM EST Yes completed [facility] Smoking 10/26/2020 12:00:00 AM EST Current some day smoker com pleted Current some day smoker [facility] Vital Signs ID Date Data Source UNK Name Value Range Interpretation Code Description Data Source(s) Body weight 143.00 [lb_av] 143.00 [lb_av] MEDEN T ([facility], [facility]) Body temperature 98.7 [degF] 98.7 [degF] [facility] Oxygen saturation in Arterial blood by Pulse oximetry 98 % 98 % [facility] Respiratory rate 14 /min 14 /min [facility] ( [facility]) Heart rate 88 /min 88 /min MEDENT ([facility]) Diastolic blood pressure 72 mm[Hg] 72 mm[Hg] MEDENT ([facility]) Systolic blood pressure 118 mm[Hg] 118 mm[Hg] M EDENT ([facility]) Oxygen saturation in Arterial blood by Pulse oximetry 98 % 98 % [facility] Body mass index (BMI) [Ratio] 25.86 kg/m2 25.86 kg/m2 [facility] Body weight 66.225 kg 66.225 kg [facility] Body height 160 cm 160 cm [facility] Heart rate 82 /min 82 /min [facility] Diastolic blood pressure 64 mm[Hg] 64 mm[Hg] [facility] Systolic blood pressure 118 mm[Hg] 118 mm[Hg] [facility] Body mass index (BMI) [Ratio] 23.0 kg/m2 23.0 k g/m2 MEDENT ([facility], [facility]) Body height 63 [in_i] 63 [in_i] [facility]) 5'3" Body weight 130.00 [lb_av] 130.00 [lb_av] MEDEN T ([facility], [facility]) Body temperature 98.6 [degF] 98.6 [degF] MEDENT ([facility], [facility]) Oxygen saturation in Arterial blood by Pulse oximetry 98 % 98 % MED[facility] ([facility], [facility]) Respiratory rate 16 /min 16 /min [facility] ( [facility], [facility]) Heart rate 86 /min 86 /min MEDENT ([facility], [facility]) Diastolic blood pressure 64 mm[Hg] 64 mm[Hg] MEDENT ([facility], [facility]) Systolic blood pressure 106 mm[Hg] 106 mm[Hg] M EDENT ([facility], [facility]) Body mass index (BMI) [Ratio] 23.0 kg/m2 23.0 k g/m2 MEDENT ([facility], [facility]) Body height 63 [in_i] 63 [in_i] MEDENT ([facility], [facility]) 5'3" Body weight 130.00 [lb_av] 130.00 [lb_av] MEDEN T ([facility], [facility]) Body temperature 98.1 [degF] 98.1 [degF] MEDENT ([facility], [facility]) Oxygen saturation in Arterial blood by Pulse oximetry 98 % 98 % MEDENT ([facility], [facility]) Respiratory rate 16 /min 16 /min MEDENT ( [facility], [facility]) Heart rate 71 /min 71 /min MEDENT ([facility], [facility]) Diastolic blood pressure 79 mm[Hg] 79 mm[Hg] MEDENT ([facility], [facility]) Systolic blood pressure 129 mm[Hg] 129 mm[Hg] M EDENT ([facility], [facility]) Diastolic blood pressure 83 mm[Hg] 83 mm[Hg] eCW1 ([facility]) Systolic blood pressure 125 mm[Hg] 125 mm[Hg] e CW1 ([facility]) Body temperature 99.8 [degF] 99.8 [degF] eCW1 ( [facility]) Respiratory rate 16 /min 16 /min eCW1 ([facility]) Heart rate 90 /min 90 /min eCW1 ([facility]) Body mass index (BMI) [Ratio] 23.77 kg/m2 23.77 kg/m2 eCW1 ([facility]) Body height 62 [in_us] 62 [in_us] eCW1 ([facility]) Body weight Measured 130 [lb_av] 130 [lb_av] eC W1 ([facility]) Patient Treatment Plan of Care Planned Activity Planned Date Details Description Data Source (s) Sertraline 100 MG Oral Tablet 10/06/2020 12:00:00 AM EST [facility] rizatriptan 10 MG Disintegrating Oral Tablet 10/04/2020 12:00:00 AM EST [facility] Ondansetron 4 MG Oral Tablet 10/04/2020 12:00:00 AM EST [facility] Cholecalciferol 60401 UNT Oral Capsule 09/15/2020 12:00:00 AM EDT [facility] 200 ACTUAT Albuterol 0.09 MG/ACTUAT Metered Dose Inhal er [ProAir] 01/10/2020 12:00:00 AM EST eCW1 ([facility])
--- OUTSIDE RECORDS SUMMARY | 2020-12-27 23:19 | CCD | Continuity of Care Document ---
Author Author Ene PIERRE A Organization Unknown Address [facility] [address] Phone [phone] Care Team Providers Care Rn Informatics Name Role Phone Ed Martinez MD AUTM Unavailable [facility] AUTM [employer] [phone] Problems Description No Information Available Social History Type Date Description Comments Sex Unknown Tobacco Use Start: Unknown Patient has never smoked Tobacco Use Start: Unknown Patient Currently Vapes Smoking Status Reviewed: 09/28/20 Patient Currently Vapes Allergies, Adverse Reactions, Alerts Description No Known Drug Allergies Medications Active Medications SIG Qnty Indications Ordering Provide r Date Control Pill Unknown Vitamin D Unknown Sertraline HCL Unknown History Medications No Active Medications Unknown - 09/20/2020 Immunizations Description No Information Available Vital Signs Date Vital Result Comment 09/28/2020 12:34pm BP Systolic 106 mmHg BP Diastolic 64 mmHg Heart Rate 86 /min Respiratory Rate 16 /min O2 % BldC Oximetry 98 % Body Temperature 98.6 F Weight 130.00 lb Height 63 inches 5'3" BMI (Body Mass Index) 23.0 kg/m2 Pain Level 9 09/20/2020 5:57pm BP Systolic 129 mmHg BP Diastolic 79 mmHg Heart Rate 71 /min Respiratory Rate 16 /min O2 % BldC Oximetry 98 % Body Temperature 98.1 F Weight 130.00 lb Height 63 inches 5'3" BMI (Body Mass Index) 23.0 kg/m2 Pain Level 5 Results Description No Information Available Procedures Date Code Description Status 09/28/2020 14760 Therapeutic, Prophylactic Or Mamie gnostic Injection Subq/Im Completed Medical Devices Description No Information Available Encounters Type Date Location Provider Dx Diagnosis Office Visit 09/28/2020 1:15p Main Office SANTI Zafar R51.9 Headache, unspecified Office Visit 09/20/2020 5:00p Main Office SANTI Musa J0 1.00 Acute maxillary sinusitis, unspecified Z20.828 Contact w and exposure to ot h viral communicable diseases Assessments Date Code Description Provider 09/28/2020 R51.9 Headache, unspecified SANTI Zafar 09/20/2020 J01.00 Acute maxillary sinusitis, unspe cified SANTI Musa 09/20/2020 Z20.828 Contact with and ([place] spected) exposure to other viral communicable diseases SANTI Musa Plan of Treatment No Information Available Functional Status Description No Information Available Mental Status Description No Information Available Referrals Refer to Reason for Referral Status Appt Date Niesha Barton PA Created [facility] [place] [address] [phone]
--- OUTSIDE RECORDS SUMMARY | 2020-12-27 23:19 | CCD | Continuity of Care Document ---
Author Author Ene PIERRE A Organization Unknown Address [facility] [place] [address] Phone [phone] Care Team Providers Care Gamewell Operator Name Role Phone Ed Martinez MD AUTM Unavailable [facility] [employer]M [employer] [phone] Problems Description No Information Available Social History [...] Available Procedures Date Code Description Status 09/28/2020 92080 Therapeutic, Prophylactic Or Mamie gnostic Injection Subq/Im [...] Status Appt Date Niesha Barton PA Created [facility] [place] [address] [phone]
[2020-12-28] MEDS ORDERED: KETOROLAC 30 MG/ML 1ML VIAL IV ONE (01:00)
[2020-12-28] MEDS ORDERED: METOCLOPRAMIDE INJ 10MG/2ML VIAL (J2765 PER 1) IV ONE (01:00)
[2020-12-28 01:30] VITALS: BP 131/69
--- OUTSIDE RECORDS SUMMARY | 2020-12-28 02:13 | CCD ---
Author Author [facility] Organization [facility] Address Unknown Phone Unavailable Care Team Providers Care C.O.D. Audit Clerk Name Role Phone Blayne Estes MD Unavailable [...] is protected by Article 27-F of the [facility] Public Health law. If you continue you may have access to information: Regarding HIV / AIDS; Provided by facilities licensed or operated by the [facility] Office of Mental Health; or Provided by the [facility] Office for People With Developmental Disabilities. If such information is present, then the following [facility] mandated warning applies: This information has been [...] law may result in a fine or penitentiary sentence or both. A general authorization for the release of medical or other information is NOT sufficient authorization for further disc losure. Encounters Encounter Providers Location Date Indications Data Source(s ) Outpatient Attender: Justine Vasques Prim diamond 12/16/2020 12:00:00 PM EST [facility] ([facility]) Outpatient Attender: Blayne Estes MD SJP.LILLIANA-SJP.LILLIANA 10/03 12:00:00 AM EST - 10/26/2020 10:18:51 AM EST [facility] Outpatient Attender: Justine Vasques Prim diamond 09/28/2020 01:15:00 PM EDT [facility] ([facility]) Outpatient Attender: Niesha Vasques Prim diamond 09/20/2020 05:00:00 PM EDT [facility] ([facility]) Emergency Attender: ELENA LEWIS MDConsultant: PCP NO 08/12/2020 01:46:00 PM EDT - 08/12/2020 05:00:00 PM EDT [facility] Patient discharged. Emergency Attender: ALEX PAREDES MDConsultant: PCP NO 08/10/2020 12:44:00 PM EDT - 08/10/2020 02:24:00 PM EDT [facility] Patient discharged. Outpatient 02/02/2020 05:42:00 AM EST [facility] [place] [facility] [address] [place] [address] 01/10/2020 12:00:00 AM EST eCW1 ([facility]) Medications Medication Brand Name Start Date Product Form Dose Route Admi nistrative Instructions Pharmacy Instructions Status Indications Reaction Description Data Source(s) Sertraline 100 MG Oral Tablet sertraline (ZOLOFT) 100 MG tablet sertraline (ZOLOFT) 100 MG tablet 10/06/2020 12:00:00 AM EST active [facility] rizatriptan 10 MG Disintegrating Oral Ta blet rizatriptan (MAXALT-ARTIST REPRESENTATIVE) 10 MG disintegrating tablet rizatriptan (MAXALT-ARTIST REPRESENTATIVE) 10 MG disintegrating tablet 10/04/2020 12:00:00 AM EST active [facility] Ondansetron 4 MG Oral Tablet ondansetron (ZOFRAN) 4 MG tablet ondansetron (ZOFRAN) 4 MG tablet 10/04/2020 12:00:00 AM EST ac tive [facility] No Active Medications 09/20/2020 12:00:00 AM EDT completed [facility] ([facility]) Cholecalciferol 49998 UNT Oral Capsule C holecalciferol (VITAMIN D3) 1.25 MG (54239 UT) CAPS Cholecalciferol (VITAMIN D3) 1.25 MG (33248 UT) CAPS 1 12:00:00 AM EDT active [facility] 200 ACTUAT Albuterol 0.09 MG/ACTUAT Mete red Dose Inhaler [ProAir] ProAir HFA 108 (90 Base) MCG/ACT ProAir HFA 108 (90 Base) MCG/ACT 01/10/2020 12:00:00 AM EST active 2 puffs as neede d eCW1 ([facility]) Insurance Providers Payer name Policy type / Coverage type Policy ID Covered green party ID Covered green party's relationship to cassidy Policy Cassidy Plan Information [facility] [id number] [facility] [id number] [facility] O [id number] S [id number] Elle [id number] [address] [facility] [id number] 2 [id number] LOCATED WITHIN [facility] - O/P [id number] Problems, Conditions, and Diagnoses Code Display Name Description Problem Type Effective Dates Data Source(s) R06.00 Dyspnea on exertion Dyspnea on exertion 77766274 [id number] 12/26/2019 12:00:00 AM [facility] R00.2 Palpitations Palpitations [id number] 10/26/2020 12:00:00 A [facility] R07.89 Other chest pain Other chest pain [id number] 10/26/2020 12 :00:00 AM [facility] R06.00 Dyspnea, unspecified Dyspnea, unspecified Diagnosis 10/26/2020 09:27:32 AM [facility] R00.2 Palpitations Palpitations Diagnosis 10/26/2020 09:27:32 A [facility] R07.89 Other chest pain Other chest pain Diagnosis 10/26/2020 09 :27:32 AM [facility] S70997 Unspecified place in unspeci fied non-institutional (private) residence as the place of occurrence of the external cause Unspecified place in unspecified non-institutional (private) residence as the place of occurrence of the external cause Diagnosis [id number] Other foreign body or object entering th rough skin, initial encounter Other foreign body or object entering through skin, initial encounter Diagnosis 08/12/2020 [facility] [id number] Puncture wound with foreign body of right ring finger without damage to nail, initial encounter Puncture wound with foreign body of righ t ring finger without damage to nail, initial encounter Diagnosis 08/12/2020 01:46:0 0 PM EDT [facility] Y9289 Other specified places as the place of o ccurrence of the external cause Other specified places as the place of occurrence of the external cause Diagnosis 08/10/2020 12:44:00 PM EDT [facility] [id number] Striking against or struck by other obje cts, initial encounter Striking against or struck by other objects, initial encounter Diagnosis 08/10/2020 12:44:00 PM EDT [facility] K25268 Cellulitis of right finger Cellulitis of right finger Diagnosis 08/10/2020 12:44:00 PM EDT [facility] [id number] Abrasion of right ring finger, initial e ncounter Abrasion of right ring finger, initial encounter Diagnosis 08/10/2020 12:44:00 PM EDT [facility] [id number] Unspecified superficial injury of right ring finger, initial encounter Unspecified superficial injury of right ring finger, initial encounter Diagnosis 08/10/2020 12:44:00 PM EDT [facility] Surgeries/Procedures Procedure Description Date Indications Data Source(s) POCT AMB EKG POCT AMB EKG Routine 10/26/2020 9:46 AM EST Other chest pain Palpitations 10/26/2020 02:46:00 PM EST PalpitationsOther roxy st pain [facility] Palpitations Other chest pain Therapeutic, Prophylactic Or Diagnostic Injection Subq/Im 09/28/2020 12:00:00 AM EDT [facility] ([facility]) STREP A ASSAY W/OPTIC 01/10/2020 12:00:00 AM EST eCW1 ([facility]) Influenza A+B 01/10/2020 12:00:00 AM EST eCW1 ([facility]) Results ID Date Data Source [id number] 12/16/2020 12:00:00 AM EST [facility] Name Value Range Interpretation Code Description Data Queta rce(s) Supporting Document(s) SARS coronavirus 2 Ag Negative [facility] This lab was ordered by [facility] Care [facility] and reported by [facility]. ID Date Data Source [id number] 09/20/2020 12:00:00 AM EDT [facility] Name Value Range Interpretation Code Description Data Queta rce(s) Supporting Document(s) SARS coronavirus 2 Ag [facility] This lab was ordered by [facility] and reported by [facility]. ID Date Data Source [id number] 08/15/2020 08:50:00 AM EDT [facility] [address] [place] [address] PHONE: [phone] FAX: [phone] Name .................. : MAMIE Ward Acct Number.................. : [id number] ROOM. ................. : [facility] MR Number ................... : [id number] Stay type ............. : E/R Discharge Date......... ... : 08/12/20 Admit Date ......... : 08/12/20 Admit Phys .................... : DEBBIE GODINEZ Date of ....... : 2000 Family Phys ................... : NO PCP Phone .................. : [phone] Age ................................ : 20 Film# .................. .:[id number] Sex ................................. : F Unsigned transcriptions are preliminary reports and do not represent a medical or legal document US EXT-NON VASCULAR RT COMPL [id number] COMPLETE:08/12/20 17:00 BAW 23655 Reason(s): ? FB in R ring finger [...] By MARLY PACHECO MD , 08/15/20 08:50, [facility] Transcribe Initials: DZ , Transcribe Date: 08/13/20 02:18, Dictation Date: Copy for: LIDIA ZAMBRANO via fax Copy for: EMERGENCY DEPT via modem Copy for: 710 MED REC DISCHARGED Page 1 of 1 Name Value Range Interpretation Code Description Data Queta rce(s) Supporting Document(s) ID Date Data Source [id number] 08/12/2020 01:46:00 PM EDT [facility] 1 OrderSheet [facility] Emergency Department [address] [place] [address] Phone #: ext- [phone] 08/12/2020 13:43 Patient: JOSEPH HATCH Sex: F [...] rce(s) Supporting Document(s) ID Date Data Source [id number] 08/12/2020 01:46:00 PM EDT [facility] 1 Medication Reconciliation Report [facility] Emergency Department [address] [place] [address] Phone #: ext- [phone] 08/12/2020 13:43 Patient: [...] PMThe following Medications were prescribed to the patient:[place] 5 mg-325 mg tablet Take 1 tablet three times a day for 2 days -- Dispense 6 tablet. Refills: 0.Substitution permitted.Pharmacy - [facility] [phone] ; [place] [address]. .[place] 5 mg-325 mg tablet Take 1 tablet three times a day for 2 days -- Dispense 6 tablet. Refills: 0.Substitution permitted. Note to Pharmacy - laceration w/ removal of FB.Pharmacy - [facility] [phone] [facility] [address] ; [place] [address]. . -- Vignesh Perales P.A.-C Name Value Range Interpretation Code Description Data Queta rce(s) Supporting Document(s) ID Date Data Source [id number] 08/12/2020 01:46:00 PM EDT [facility] 1 Medication Administration Record [facility] Emergency Department [address] [place] [address] Phone #: [phone]- [phone] 08/12/2020 13:43 Patient: JOSEPH HATCH Sex: F : 2000 Age: 20yWeight: 58.9 kgHeight/Length: 63 inBMI: 23ALLERGIES: No Known Drug Allergy Date/Time Medication Administered Medication OrderedGiven BACITRACIN ZINC [TOPICAL] Bacitracin Zinc Topical 116:37 08/12/2020 Dose: 1 application Ointment Topical Abdi Cuba R.N. Name Value Range Interpretation Code Description Data Queta rce(s) Supporting Document(s) ID Date Data Source [id number] 08/12/2020 01:46:00 PM EDT [facility] 1 General Instructions [facility] Emergency Department [address] [place] [address] Phone #: ext- [phone] 08/12/2020 13:43 Patient: JOSEPH HATCH Sex: F [...] does not exceed state maximum supply ofmedicationsPrescription Medications:[place] 5 mg-325 mg tablet Take 1 tablet three times a day for 2 days -- Dispense 6 tablet. Refills: 0.Substitution permitted.Pharmacy - [facility] [phone] ; [place] [address]. .[place] 5 mg-325 mg tablet Take 1 tablet three times a day for 2 days -- Dispense 6 tablet. Refills: 0.Substitution permitted. Note to Pharmacy - laceration w/ removal of FB.Pharmacy - [facility] [phone] [facility] [address] ; [place] [address]. .Follow-up:Return to the emergency department as needed. Follow up with your healthcare provider in about twodays. 2 General Instructions [facility] Emergency Department [address] [place] [address] Phone #: ext- [phone] 08/12/2020 13:43 Patient: [...] pain medicines were prescribed, you can use eeko-rah-dooylrb pain medicines. Follow instructions for taking any [...] to do so. If 3 General Instructions [facility] Emergency Department [address] [place] [address] Phone #: ext- [phone] 08/12/2020 13:43 [id number] Sex: F : 2000 Age: 20y the [...] be painful when eating. You may use plgjfy-xmd-xvaoozs local numbing solution for pain relief. If this is not available, you may use anynumbing solution intended for teething babies. You may apply this directly to the sores with acotton-tip swab or with your finger. 4 General Instructions [facility] Emergency Department [address] [place] [address] Phone #: ext- [phone] 08/12/2020 13:43 Patient: [...] control the wound bleeding with direct pressure. [phone] [employer] [address] [place] [address], [place] [address]. All rights reserved. This information is not [...] or needfurther treatment.Home care 5 General Instructions [facility] Emergency Department [address] [place] [address] Phone #: ext- [phone] 08/12/2020 13:43 Patient: [...] dry with a towel.Medicine You can take bbfm-bee-xzwvbnm medicine for pain, unless you were given [...] with your healthcare provider. 6 General Instructions [facility] Emergency Department [address] [place] [address] Phone #: ext- [phone] 08/12/2020 13:43 Patient: [...] swelling or pus coming from the wound [phone] [employer] [address] [place] [address], [place] [address]. All rights reserved. This information is not [...] no baths or swimming. You may use pnop-ftz-kkrfqsj medication for pain, unless another pain medicine was given. Talk with your doctor before using acetaminophen or ibuprofen if you have chronic liver or kidney disease. Also talk with your doctor if you have ever had a stomach ulcer or GI bleeding. 7 General Instructions [facility] Emergency Department [address] [place] [address] Phone #: ext- [phone] 08/12/2020 13:43 Patient: [...] or as directed by your healthcare provider [phone] [employer] [address] [place] [address]. All rights reserved. This information is not [...] the wound gets worse 8 General Instructions [facility] Emergency Department [address] [place] [address] Phone #: ext- [phone] 08/12/2020 13:43 Patient: JOSEPH HATCH Sex: F : 2000 Age: 20y Pus drains when you remove the bandage Red streaks surround the wound area [phone] [employer] [address] [place] [address]. All rights reserved. This information is not [...] pain medicines were prescribed, you can use vecg-egg-tlllpie pain medicines. Follow instructions for taking any [...] to do so. If 9 General Instructions [facility] Emergency Department [address] [place] [address] Phone #: ext- [phone] 08/12/2020 13:43 Patient: [...] be painful when eating. You may use hlndrm-xyo-xevwzic local numbing solution for pain relief. If this is not available, you may use anynumbing solution intended for teething babies. You may apply this directly to the sores with acotton-tip swab or with your finger. 10 General Instructions [facility] Emergency Department [address] [place] [address] Phone #: ext- [phone] 08/12/2020 13:43 Patient: [...] control the wound bleeding with direct pressure. 2106-4820 [employer] [address] [place] [address], [place] [address]. All rights reserved. This information is not intended as asubstitute for professional medical care. Always follow your healthcare professional's instructions. You have been given the following additional information: Laceration: All Closures Foreign Body, Soft Tissue (Removed) Splinter Removal Dressing Change Laceration: All Closures 11 General Instructions [facility] Emergency Department [address] [place] [address] Phone #: ext- [phone] 08/12/2020 13:43 Patient: JOSEPH HATCH Sex: F : 2000 Age: 20yLimit use of your right hand for one weeks. Do not work with right hand for one weeks. 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 [...] 08/12/20 Lorene Rogers R.N.ADDITIONAL SURGERIES:Right hand cyst removal.[place] teeth extraction. --13:53 08/12/20 Lorene Rogers R.N.HistoryPAST MEDICAL HX: Immunizations: up-to-date. Last normal menstrual period- 07/31/2020. 2 Clinical Report - Nurses [facility] Emergency Department [address] [place] [address] Phone #: ext- [phone] 08/12/2020 13:43 Patient: JOSEPH HATCH Sex: F [...] affected area. 3 Clinical Report - Nurses [facility] Emergency Department [address] [place] [address] Phone #: ext- [phone] 08/12/2020 13:43 Patient: [...] Patient verbalized understanding. Written instructions provided in Mauritanian. The patient was discharged by the physician retail sales assistant. She was discharged home and accompanied by filing machine operator. She left ambulatory and via private vehicle. Manager Credit Collections driving. --17:00 08/12/20 Abdi Castellon R.N. 16:48 08/12/20. BP: 120/74. MAP: 89. HR: 87. RR: 16. O2 saturation: 100%. Temp: 99.1 F. Pain level now: 02/08. --17:00 08/12/20 Abdi Castellon R.N.Locked/Released at 08/12/2020 17:18 by Abdi Castellon R.N. Name Value Range Interpretation Code Description Data Queta rce(s) Supporting Document(s) ID Date Data Source [id number] 08/12/2020 01:46:00 PM EDT [facility] 1 Clinical Report - Physicians/Mid Levels [facility] Emergency Department [address] [place] [address] Phone #: ext- [phone] 08/12/2020 13:43 Patient: [...] Cellulitis. Additional Surgeries: Right hand cyst removal. [place] teeth extraction. Medications: Control Pills 1 pill, daily. Keflex Oral 500 mg, q8h. Sertraline HCl Oral 100 mg, daily. Allergies: No Known Drug Allergy.SOCIAL HISTORYNever smoker. No alcohol use or drug use. 2 Clinical Report - Physicians/Mid Levels [facility] Emergency Department [address] [place] [address] Phone #: ext- [phone] 08/12/2020 13:43 Patient: [...] approximate.). 3 Clinical Report - Physicians/Mid Levels [facility] Emergency Department [address] [place] [address] Phone #: ext- [phone] 08/12/2020 13:43 Patient: JOSEPH HATCH Sex: F [...] injury. 4 Clinical Report - Physicians/Mid Levels [facility] Emergency Department [address] [place] [address] Phone #: ext- [phone] 08/12/2020 13:43 Patient: JOSEPH HATCH Sex: F [...] state maximum supply of medications Prescription Medications: [place] 5 mg- 325 mg tablet Take 1 tablet three times a day for 2 days -- Dispense 6 tablet. Refills: 0. Substitution permitted. Pharmacy - [facility] [phone] ; [place] [address]. FaxNumber: . [place] 5 mg-325 mg tablet Take 1 tablet three times a day for 2 days -- Dispense 6 tablet. Refills: 0. Substitution permitted. Note to Pharmacy - laceration w/ removal of FB. Pharmacy - [facility] [address] [facility] [address] ; [place] [address]. . Follow- up: Return to the emergency department as needed. Follow up with your healthcare provider in about two days. Understanding of the discharge instructions verbalized by patient. 5 Clinical Report - Physicians/Mid Levels [facility] [address] [place] [address] Phone #: ext- [phone] 08/12/2020 13:43 Patient: JOSEPH HATCH Sex: F : 2000 Age: 20y(Electronically signed by Vignesh Perales P.A.-C 08/12/2020 21:56) Name Value Range Interpretation Code Description Data Queta rce(s) Supporting Document(s) ID Date Data Source [id number] 08/11/2020 11:43:00 AM EDT [facility] [address] [place] [address] PHONE: [phone] FAX: [phone] Name .................. : MAMIE Ward Acct Number.................. : [id number] ROOM. ................. : TR-1A MR Number ................... : [id number] Stay type ............. : E/R Discharge Date......... ... : 08/10/20 Admit Date ......... : 08/10/20 Admit Phys .................... : COONEYNORM Date of ....... : 2000 Family Phys ................... : NO PCP Phone .................. : [phone] Age ................................ : 20 Film# .................. .:[id number] Sex ................................. : F Unsigned transcriptions are preliminary reports and do not represent a medical or legal document FINGERS RT [id number] COMPLETE:08/10/20 17:54 MARICRUZ [id number] Reason(s): Foreign Body RIGHT FOURTH FINGER X-RAY: [...] rce(s) Supporting Document(s) ID Date Data Source [id number] 08/10/2020 12:44:00 PM EDT [facility] 1 OrderSheet [facility] Emergency Department [address] [place] [address] Phone #: ext- [phone] 08/10/2020 12:31 Patient: JOSEPH HATCH Sex: F [...] rce(s) Supporting Document(s) ID Date Data Source [id number] 08/10/2020 12:44:00 PM EDT [facility] 1 Medication Reconciliation Report [facility] Emergency Department [address] [place] [address] Phone #: ext [phone] 08/10/2020 12:31 Patient: JOSEPH HATCH Sex: F [...] rce(s) Supporting Document(s) ID Date Data Source [id number] 08/10/2020 12:44:00 PM EDT [facility] 1 Medication Administration Record [facility] Emergency Department [address] [place] [address] Phone #: ext- [phone] 08/10/2020 12:31 Patient: JOSEPH HATCH Sex: F : 2000 Age: 20yWeight: 58.9 kgHeight/Length: 63 inBMI: 23ALLERGIES: No Known Drug Allergy Date/Time Medication Administered Medication OrderedGiven MOTRIN [PO] (IBUPROFEN) Motrin 600 mg PO X1 dose: 96367:50 08/10/2020 Dose: 600 mg Tablets PO mg (NOW x1)Janet Garay RNGiven TYLENOL [PO] (APAP) Tylenol PO 650 mg (NOW x1)12:50 08/10/2020 Dose: 650 mg Tablets PODoris Hagenston, RN Name Value Range Interpretation Code Description Data Queta e(s) Supporting Document(s) ID Date Data Source [id number] 08/10/2020 12:44:00 PM EDT [facility] 1 General Instructions [facility] Emergency Department [address] [place] [address] Phone #: ext- [phone] 08/10/2020 12:31 Patient: [...] fever, chills, and pain. 2 General Instructions [facility] Emergency Department [address] [place] [address] Phone #: ext- [phone] 08/10/2020 12:31 Patient: [...] or higher after 2 days on antibiotics [phone] [employer] [address] [place] [address], [place] [address]. All rights reserved. This information is not intended as asubstitute for professional medical care. Always follow your healthcare professional's instructions.Cephalexin tablets or capsulesWhat is this medicine? 3 General Instructions [facility] Emergency Department [address] [place] [address] Phone #: ext- [phone] 08/10/2020 12:31 Patient: JOSEPH HATCH Sex: F [...] or stop your medicine early.Talk to your teacher adventure education regarding the use of this medicine in children. While this drug may beprescribed for selected conditions, precautions do apply.What side effects may I notice from receiving this medicine?Side effects that you should report to your doctor or health healthcare manager as soon as possible: allergic reactions like [...] probenecid some other antibiotics 4 General Instructions [facility] Emergency Department [address] [place] [address] Phone #: jzm- [phone] 08/10/2020 12:31 Patient: JOSEPH HATCH Sex: F [...] using this medicine?Tell your doctor or health healthcare manager if your symptoms do not begin to improve in a few days.Do not treat diarrhea with over the counter products. Contact your doctor if you have diarrhea thatlasts more than 2 days or if it is severe and watery.If you have diabetes, you may get a false-positive result for sugar in your urine. Check with yourdoctor or health healthcare manager.NOTE:This sheet is a summary. It may not cover all possible information. If you have questions about this medicine, talk to your doctor, pharmacist, orhealth care provider. Copyright 2019 [employer] You have been given the following additional information: Cellulitis Skin Infection Cephalexin tablets or capsules 5 General Instructions [facility] Emergency Department [address] [place], [place] [id number] Phone #: ext- [phone] 08/10/2020 12:31 Patient: JOSEPH HATCH Sex: F : 2000 Age: 20yDo not work for three days.(Electronically signed by Alex Paredes MD 08/10/2020 23:07) Name Value Range Interpretation Code Description Data Queta rce(s) Supporting Document(s) ID Date Data Source [id number] 08/10/2020 12:44:00 PM EDT [facility] 1 Clinical Report - Nurses [facility] Emergency Department [address] [place] [address] Phone #: ext- [phone] 08/10/2020 12:31 Patient: [...] fever or itching. Not itchy or burning.Treatment [employer] OPERATOR:(heat compress).SEPSIS SCREEN: Sepsis Screen negative. No suspected [...] 08/10/20 Yamilet Reardon R.N.ADDITIONAL SURGERIES:Right hand cyst removal.[place] teeth extraction. --12:36 08/10/20 Yamilet Reardon R.N.HistoryPAST MEDICAL HX: Immunizations: up-to-date. Last normal menstrual period was 1 week ago. Denies urrent . 2 Clinical Report - Nurses [facility] Emergency Department [address] [place] [address] Phone #: ext- [phone] 08/10/2020 12:31 Patient: [...] risk identified. --12:38 08/10/20 Yamilet Reardon R.N.PHYSICAL [id number]:45 08/10/20. Ambulatory to room.GENERAL / NEURO / [...] Garay RN 3 Clinical Report - Nurses [facility] Emergency Department [address] [place] [address] Phone #: ext- [phone] 08/10/2020 12:31 Patient: JOSEPH HATCH Sex: F : 2000 Age: 20y 12:52 08/10/20. Patient walked to radiology with radiology equipment servicer. --12:52 08/10/20 Janet Garay RN 12:58 08/10/20. Patient walked back from radiology with radiology equipment servicer. --13:23 08/10/20 Janet Garay RN 13:54 08/10/20. BP: 121/78. MAP: 92. HR: 76. RR: 16. O2 saturation: 99%. --13:55 08/10/20 [facility] Tech1.DISPOSITION / DISCHARGE 14:18 08/10/20. BP: 117/78. MAP: 91. HR: 75. RR: 16. O2 saturation: 99%. Temp: 98.2 F. --14:18 08/10/20 [facility] Tech1 14:24 08/10/20. Condition at departure: stable. No learning barriers present. Reviewed medication(s) side effects, precautions, dosing and course information. Prescription(s) sent electronically to pharmacy ([facility]). Patient verbalized understanding. Written instructions provided in Mauritanian. The patient was discharged home. She left ambulatory and via private vehicle. Patient driving. --14:25 08/10/20 Janet Garay RN 14:24 08/10/20. Pain level now: 02/08. --14:26 08/10/20 Jaent Garay RN.Locked/Released at 08/10/2020 14:26 by Janet Garay RN Name Value Range Interpretation Code Description Data Queta rce(s) Supporting Document(s) ID Date Data Source [id number] 08/10/2020 12:44:00 PM EDT [facility] 1 Clinical Report - Physicians/Mid Levels [facility] Emergency Department [address] [place] [address] Phone #: ext- [phone] 08/10/2020 12:31 [id number] Sex: F : 2000 Age: 20y Arrived- [...] pt is right handed. she works at [employer]. she uses her hands a lot.). Similar [...] reviewed. 2 Clinical Report - Physicians/Mid Levels [facility] Emergency Department [address] [place] [address] Phone #: ext- [phone] 08/10/2020 12:31 Patient: [...] IMPRESSION 3 Clinical Report - Physicians/Mid Levels [facility] Emergency Department [address] [place] [address] Phone #: ext- [phone] 08/10/2020 12:31 Patient: [...] instructions verbalized by patient.(Electronically signed by Alex Pareeds MD 08/10/2020 23:07) Name Value Range Interpretation Code Description Data Queta rce(s) Supporting Document(s) ID Date Data Source GATS (NEGATIVE STREP SCREEN) 01/10/2020 12:00:00 AM EST eCW1 ([facility]) Name Value Range Interpretation Code Description Data Queta rce(s) Supporting Document(s) FULL REPORT IN LAB NOTES (eCW and Medent). GATS CULTURE (NEG STREP SCR) eCW1 ([facility]) Procedure Social History Code Duration Value Status Description Data Source(s ) Alcohol intake 10/26/2020 12:00:00 AM EST Yes completed [facility] Smoking 10/26/2020 12:00:00 AM EST Current some day smoker com pleted Current some day smoker [facility] Vital Signs ID Date Data Source UNK Name Value Range Interpretation Code Description Data Source(s) Body weight 143.00 [lb_av] 143.00 [lb_av] MED[facility] T ([facility], [facility]) Body temperature 98.7 [degF] 98.7 [degF] [facility] Oxygen saturation in Arterial blood by Pulse oximetry 98 % 98 % [facility] Respiratory rate 14 /min 14 /min [facility] ( [facility]) Heart rate 88 /min 88 /min MEDENT ([facility]) Diastolic blood pressure 72 mm[Hg] 72 mm[Hg] [facility] ([facility]) Systolic blood pressure 118 mm[Hg] 118 mm[Hg] M EDENT ([facility]) Oxygen saturation in Arterial blood by Pulse oximetry 98 % 98 % [facility] Body mass index (BMI) [Ratio] 25.86 kg/m2 25.86 kg/m2 [facility] Body weight 66.225 kg 66.225 kg [facility] Body height 160 cm 160 cm [facility] Heart rate 82 /min 82 /min [facility] Diastolic blood pressure 64 mm[Hg] 64 mm[Hg] [facility] Systolic blood pressure 118 mm[Hg] 118 mm[Hg] [facility] Body mass index (BMI) [Ratio] 23.0 kg/m2 23.0 k g/m2 MEDENT ([facility], [facility]) Body height 63 [in_i] 63 [in_i] [facility] 5'3" Body weight 130.00 [lb_av] 130.00 [lb_av] MEDEN T ([facility], [facility]) Body temperature 98.6 [degF] 98.6 [degF] MEDENT ([facility], [facility]) Oxygen saturation in Arterial blood by Pulse oximetry 98 % 98 % [facility] ([facility], [facility]) Respiratory rate 16 /min 16 /min [facility] ( [facility], [facility]) Heart rate 86 /min 86 /min MEDENT ([facility], [facility]) Diastolic blood pressure 64 mm[Hg] 64 mm[Hg] MEDENT ([facility], [facility]) Systolic blood pressure 106 mm[Hg] 106 mm[Hg] M EDENT ([facility], [facility]) Body mass index (BMI) [Ratio] 23.0 kg/m2 23.0 k g/m2 MEDENT ([facility], [facility]) Body height 63 [in_i] 63 [in_i] MEDENT ([facility], [facility]) 5'3" Body weight 130.00 [lb_av] 130.00 [lb_av] MEDEN T ([facility], [facility]) Body temperature 98.1 [degF] 98.1 [degF] MEDENT ([facility], [facility]) Oxygen saturation in Arterial blood by Pulse oximetry 98 % 98 % MEDENT ([facility], [facility]) Respiratory rate 16 /min 16 /min MEDENT ( [facility], [facility]) Heart rate 71 /min 71 /min MEDENT ([facility], [facility]) Diastolic blood pressure 79 mm[Hg] 79 mm[Hg] MEDENT ([facility], [facility]) Systolic blood pressure 129 mm[Hg] 129 mm[Hg] M EDENT ([facility], [facility]) Diastolic blood pressure 83 mm[Hg] 83 mm[Hg] eCW1 ([facility]) Systolic blood pressure 125 mm[Hg] 125 mm[Hg] e CW1 ([facility]) Body temperature 99.8 [degF] 99.8 [degF] eCW1 ( [facility]) Respiratory rate 16 /min 16 /min eCW1 ([facility]) Heart rate 90 /min 90 /min eCW1 ([facility]) Body mass index (BMI) [Ratio] 23.77 kg/m2 23.77 kg/m2 eCW1 ([facility]) Body height 62 [in_us] 62 [in_us] eCW1 ([facility]) Body weight Measured 130 [lb_av] 130 [lb_av] eC W1 ([facility]) Patient Treatment Plan of Care Planned Activity Planned Date Details Description Data Source (s) Sertraline 100 MG Oral Tablet 10/06/2020 12:00:00 AM EST [facility] rizatriptan 10 MG Disintegrating Oral Tablet 10/04/2020 12:00:00 AM EST [facility] Ondansetron 4 MG Oral Tablet 10/04/2020 12:00:00 AM EST [facility] Cholecalciferol 37800 UNT Oral Capsule 09/15/2020 12:00:00 AM EDT [facility] 200 ACTUAT Albuterol 0.09 MG/ACTUAT Metered Dose Inhal er [ProAir] 01/10/2020 12:00:00 AM EST eCW1 ([facility])
== END 2020-12-28 02:25 | disposition home or self-care (01) ==
LOC: M ED 23:12
DX: G43.909 Migraine, unspecified, not intractable, without status migrainosus (principal); Z79.899 Other long term (current) drug therapy
CPT/HCPCS: 96374; 96375; 99284; J1885; J2765

== ENCOUNTER 2021-07-28 08:05 | Emergency (ER) | payer OTHER ==
[~2021-07-28] VITALS: Ht 160 cm; Wt 70.5 kg
[2021-07-28 08:06] VITALS: BP 127/70
== END 2021-07-28 11:16 | disposition left against medical advice (07) ==
LOC: M ED 08:05
DX: Z53.21 Procedure and treatment not carried out due to patient leaving prior to being seen by health care provider (principal)

== ENCOUNTER 2021-07-28 21:27 | Emergency (ER) | payer OTHER ==
[~2021-07-28] VITALS: Ht 160 cm; Wt 70.0 kg
[2021-07-28 21:27] VITALS: BP 119/78
== END 2021-07-29 02:21 | disposition left against medical advice (07) ==
LOC: M ED 21:27
DX: Z53.21 Procedure and treatment not carried out due to patient leaving prior to being seen by health care provider (principal)

== ENCOUNTER 2022-04-18 17:21 | Emergency (ER) | payer OTHER ==
[~2022-04-18] VITALS: Ht 160 cm; Wt 66.7 kg
[2022-04-18] MEDS ORDERED: SERT150C (17:56)
[2022-04-18] MEDS ORDERED: BUPR75TA5 (17:56)
[2022-04-18 19:57] LABS: HEMOGLOBIN 12.6 g/dl (12.0-15.5); MEAN CORPUSCULAR HEMOGLOBIN 29.6 pg (27.0-33.0); MEAN CORPUSCULAR HGB CONC 34.1 g/dl (32.0-36.5); MEAN CORPUSCULAR VOLUME 87.1 fl (80.0-96.0); PLATELET COUNT, AUTOMATED 175 10^3/uL (150-450); RED BLOOD COUNT 4.25 10^6/uL (4.00-5.40); WHITE BLOOD COUNT 8.9 10^3/uL (4.0-10.0)
[2022-04-18 20:20] LABS: HCG, SERUM QUALITATIVE NEGATIVE (NEGATIVE)
[2022-04-18 20:33] LABS: ACETAMINOPHEN LEVEL < 2.0 UG/ML (10.0-30.0); ALBUMIN 3.6 GM/DL (3.2-5.2); ALT/SGPT 33 U/L (12-78); BILIRUBIN,DIRECT 0.1 MG/DL (0.0-0.2); BILIRUBIN,TOTAL 0.4 MG/DL (0.2-1.0); BLOOD UREA NITROGEN 6 MG/DL (7-18); CARBON DIOXIDE LEVEL 27 MEQ/L (21-32); CHLORIDE LEVEL 107 MEQ/L (98-107); CREATININE FOR GFR 0.71 MG/DL (0.55-1.30); ETHYL ALCOHOL (ETHANOL) < 0.003 % (0.000-0.010); GLOMERULAR FILTRATION RATE > 60.0 (>60); GLUCOSE, FASTING 101 MG/DL (70-100); POTASSIUM SERUM 3.8 MEQ/L (3.5-5.1); SALICYLATE LEVEL < 1.7 MG/DL (5.0-30.0); SODIUM LEVEL 141 MEQ/L (136-145); TOTAL PROTEIN 7.3 GM/DL (6.4-8.2)
[2022-04-18 20:39] LABS: RSV AMPLIFICATION NEGATIVE (NEGATIVE)
[2022-04-18] MEDS ORDERED: OMEP40CA5 PO (23:27)
[2022-04-18] MEDS ORDERED: ZOLO50TA PO (23:27)
[2022-04-18] MEDS ORDERED: FLUT15.820 (23:27)
[2022-04-18] MEDS ORDERED: BUPR75TA5 PO (23:27)
[2022-04-18] MEDS ORDERED: TRI-TAB PO (23:27)
[2022-04-18] MEDS ORDERED: IBUP-1416 PO (23:27)
[2022-04-18] MEDS ORDERED: LACT20EL PO (23:27)
[2022-04-18] MEDS ORDERED: ZOLO100T PO (23:27)
[2022-04-18] MEDS ORDERED: HOME MED LIST COMPLETE! XX SCH (23:30)
[2022-04-19] MEDS ORDERED: KETOROLAC TROMETHAMINE 10 MG TAB PO ONE ×2 (04:10→22:00)
[2022-04-19 07:13] LABS: AMPHETAMINES LEVEL URINE NEGATIVE (NEGATIVE); BARBITURATES URINE NEGATIVE (NEGATIVE); BENZODIAZEPINES URINE POSITIVE (NEGATIVE); CANNABINOIDS URINE NEGATIVE (NEGATIVE); COCAINE METABOLITE URINE NEGATIVE (NEGATIVE); METHADONE URINE NEGATIVE (NEGATIVE); OPIATES URINE NEGATIVE (NEGATIVE); PHENCYCLIDINE URINE NEGATIVE (NEGATIVE)
[2022-04-19] MEDS ORDERED: buPROPion 75 MG TAB PO ONE (17:55)
[2022-04-19] MEDS ORDERED: SERTRALINE HCL 50 MG TAB PO ONE (17:55)
[2022-04-19] MEDS ORDERED: SERTRALINE HCL 50 MG TAB PO SCH (21:00)
[2022-04-19] MEDS ORDERED: buPROPion 75 MG TAB PO SCH (21:00)
[2022-04-19 23:18] VITALS: BP 137/82
[2022-04-20] MEDS ORDERED: buPROPion 75 MG TAB PO SCH (21:00)
[2022-04-20] MEDS ORDERED: SERTRALINE HCL 50 MG TAB PO SCH (21:00)
== END 2022-04-19 23:20 ==
LOC: M ED 17:21
DX: R45.851 Suicidal ideations (principal); F32.A Depression, unspecified; F10.10 Alcohol abuse, uncomplicated; F19.10 Other psychoactive substance abuse, uncomplicated; F41.9 Anxiety disorder, unspecified; F43.10 Post-traumatic stress disorder, unspecified; Z79.899 Other long term (current) drug therapy